=== PATIENT | male | born 1945 | race Caucasian/White ===

== ENCOUNTER 2016-03-02 15:08 | Inpatient (IN) | payer MEDICARE, BC ==
[~2016-03-02] VITALS: Ht 190.5 cm; Wt 101.4 kg
[2016-03-03] MEDS ORDERED: SIMV5TAB3 PO (12:34)
[2016-03-03] MEDS ORDERED: METO100T PO (12:34)
[2016-03-03] MEDS ORDERED: ALLO300T2 PO (12:34)
[2016-03-03] MEDS ORDERED: DILT90TA PO (12:34)
[2016-03-03] MEDS ORDERED: TAMS0.4C4 PO (12:34)
[2016-03-03] MEDS ORDERED: SYMB160A INH (12:34)
[2016-03-03] MEDS ORDERED: DIGO0.25 PO (12:34)
[2016-03-03] MEDS ORDERED: APIX5TAB PO (12:34)
[2016-03-03] MEDS ORDERED: MELO-1 PO (12:34)
[2016-03-03] MEDS ORDERED: SPIRCAP INH (12:34)
[2016-03-03] MEDS ORDERED: OMEP20TA PO (12:34)
[2016-03-03] MEDS ORDERED: ORPH100T PO (12:34)
[2016-03-31] MEDS ORDERED: ceFAZolin 2 GM PREMIX 50 ML IV SCH (07:15)
[2016-03-31] MEDS ORDERED: EXPAREL PERI-ARTICULAR INJECTION (TOTAL VOL. 60 ML) P-ARTICULR SCH ×2 (07:15)
[2016-03-31] MEDS ORDERED: VANCOMYCIN 1000 MG/NS 250 ML (for <70 kg) IV SCH ×2 (07:15)
[2016-03-31] MEDS ORDERED: CHOL5000 PO (07:24)
[2016-03-31] MEDS ORDERED: INSULIN HUMAN REGULAR 1,000 UNITS/10 ML VIAL SQ PRN (07:30)
[2016-03-31] MEDS ORDERED: LACTATED RINGER'S 1000 ML IV SCH (07:30)
[2016-03-31] MEDS ORDERED: METOPROLOL TARTRATE 25 MG TAB PO PRN (07:30)
[2016-03-31] MEDS ORDERED: SODIUM CHLORID 0.9% 500 ML IV SCH (07:30)
[2016-03-31 07:35] VITALS: BP 118/74; PULSE 68; RESP 18; TEMP 97.5; O2SAT 92
[2016-03-31 07:42] LABS: BLOOD, URINE NEG (NEG); COMMENT (UR) CULT NOT INDICATED; CULTURE IF INDICATED CULT NOT INDICATED; GLUCOSE,URINE NEG (NEG); KETONE, URINE NEG (NEG); NITRITE,URINE NEG (NEG); SQUAMOUS EPITHELIAL CELL URINE 1 /hpf (0-5); URINE COLOR YELLOW (YELLW/STRAW)
[2016-03-31] MEDS ORDERED: SODIUM CHLORIDE 0.9% IV SCH (08:00)
[2016-03-31] MEDS ORDERED: TRANEXAMIC ACID IV SCH (08:00)
[2016-03-31] MEDS ORDERED: GENTAMICIN SULFATE 80 MG/2 ML VIAL ONE (08:17)
[2016-03-31] MEDS ORDERED: VANCOMYCIN HCL 1000 MG VIAL ONE (08:17)
[2016-03-31] MEDS ORDERED: MIDAZOLAM HCL 2 MG/2 ML VIAL ONE (08:26)
[2016-03-31] MEDS ORDERED: FAMOTIDINE 20 MG/2 ML VIAL ONE (08:26)
[2016-03-31] MEDS ORDERED: XARE10TA PO (08:35)
[2016-03-31] MEDS ORDERED: HYDR-3366 PO (08:35)
[2016-03-31] MEDS ORDERED: BUPIVACAINE/EPINEPHRINE 0.25% PF 30 ML VIAL ONE (08:35)
[2016-03-31] MEDS ORDERED: WALKER/ADULT/FO1 MIS (08:35)
[2016-03-31] MEDS ORDERED: ceFAZolin INJ 1,000 MG VIAL IV ONE (09:03)
[2016-03-31] MEDS: LACTATED RINGER'S 1000 ML INJ 1,000 ML IV SCH (11:30)
--- NOTE | 2016-03-31 11:44 | HHI.PR ---
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 My P.A. presence was necessary throughout this case for the manipulation and positioning of the surgical extremity. My P.A. was assisting me throughout the duration of this procedure. The skill set of a physician orthopaedic physician assistant was medically necessary to complete this procedure. During the surgical case the surgical assist was working at the back table and the physician orthopaedic physician assistant was directly assisting me. Procedure: Removal of deep hardware, open reduction internal fixation of right tibia nonunion, iliac crest bone grafting, placement of stem cell graft Estimated blood loss: 300 mL Anesthesia: General Drains: None Patient to: PACU Patient Condition: Good Jose D De La Torre MD Mar 31, 2016 11:44
[2016-03-31] MEDS ORDERED: MORPHINE SULFATE 4 MG/ML INJ IV PUSH PRN (11:45)
[2016-03-31] MEDS ORDERED: MISCELLANEOUS NURSING INFORMATION XX PRN (11:45)
[2016-03-31] MEDS ORDERED: SODIUM CHLORIDE 0.9% FLUSH 5 ML FLUSH IVF PRN (11:45)
[2016-03-31] MEDS ORDERED: NALOXONE HCL 0.4 MG/ML AMP IV PRN (11:45)
[2016-03-31] MEDS ORDERED: MISCELLANEOUS PHARMACY INFORMATION XX ONE (11:45)
[2016-03-31] MEDS ORDERED: ACETAMINOPHEN/HYDROcodone 325 MG/10 MG TAB PO PRN (11:45)
[2016-03-31] MEDS ORDERED: diphenhydrAMINE HCL 25 MG CAP PO PRN (11:45)
[2016-03-31] MEDS ORDERED: MORPHINE SULFATE 30 MG/30 ML PCA IV SCH (11:45)
[2016-03-31] MEDS ORDERED: Post-op Orders (for Pharmacy) MISC XX ONE (11:45)
[2016-03-31] MEDS ORDERED: ONDANSETRON HCL 4 MG/2 ML VIAL IVP PRN (11:45)
[2016-03-31] MEDS ORDERED: ePHEDrine/NS 25 MG/5 ML SYR IV ONE (12:00)
[2016-03-31] MEDS ORDERED: ONDANSETRON HCL 4 MG/2 ML VIAL IV PUSH ONE (12:00)
[2016-03-31] MEDS ORDERED: LACTATED RINGER'S 1000 ML INJ 1,000 ML IV ONE (12:00)
[2016-03-31] MEDS ORDERED: PROPOFOL 200 MG/20 ML AMP IV ONE (12:00)
[2016-03-31] MEDS ORDERED: fentaNYL CITRATE 250 MCG/5 ML AMP ONE (12:47)
[2016-03-31] MEDS ORDERED: MORPHINE SULFATE 4 MG/ML INJ ONE (12:47)
[2016-03-31] MEDS ORDERED: *morphine SULFATE 8 MG/ML PERIprocedure ONLY ONE (12:48)
--- NOTE | 2016-03-31 12:57 | MP ---
cc: JOSE D PARSONS DATE OF SURGERY: 03/31/2016 PREOPERATIVE DIAGNOSIS Right proximal tibia nonunion. POSTOPERATIVE DIAGNOSIS Right proximal tibia nonunion. SURGEON Jose D Parsons MD ASSISTANTS KYLIE Conroy PA-C The surgical procedure was assisted by my physician assistants. My PA-C's presence was necessary throughout this case for the manipulation and positioning of the surgical extremity. My PA-C's were assisting me throughout the duration of this procedure. The skill set of a physician nursing home assistant was medically necessary to complete this procedure. During the surgical case the surgical services director was working at the back table and the physician assistants were directly assisting me. PROCEDURE 1. Removal of deep hardware. 2. Open treatment with open reduction internal fixation of right tibia fracture nonunion. 3. Iliac crest bone grafting. 4. Placement of stem cell graft. ESTIMATED BLOOD LOSS 300 cc. ANESTHESIA General. PLAN OF ACTIVITY Non-weightbearing. DETAILS OF PROCEDURE Jaya is a 70-year-old male who is well-known to me from previous comminuted tibial fractures. Informed consent was obtained. The operative site was marked. He was brought to the OR and placed on the OR table. He was given IV sedation and GETA. He received IV antibiotics. Time-out procedure was performed. The procedure began with removal of deep hardware. Multiple incisions were made around the proximal knee. Each of the proximal screws was identified under fluoroscopy. The screws were now removed using a screwdriver. At this point a 3-cm incision was made over the anterior knee. A medial arthrotomy was created. The proximal end of the nail was identified. The extraction bolt was screwed into the nail. At this point the distal interlocking screws were now removed under fluoroscopy. The nail was now back-slapped and removed. Next, attention was turned to open treatment of the nonunion. A TPS sade was used to debride the nonunion site. There was a large amount of fibrous tissue present. All fibrous tissue was debrided. In intramedullary canal was opened proximally and distally. At this point the fracture was mobilized. Next attention was turned to reduction. Reduction of the nonunion was difficult. A fracture tenaculum was used to aid in reduction of the fracture. An eight-holed Synthes 3.5 plate was selected. The plate was provisionally placed over the anterior border of the tibia. The plate was placed in position to help reduce and compress the fracture. Multiple 3.5 cortical screws were used to compress plate to bone. Additional lag screws were placed through the plate. Excellent compression was obtained across the nonunion site. Next, a 3.5 Synthes proximal tibial plate was placed along the lateral border of the tibia. The plate was provisionally held to bone with K-wires. Multiple 3.5 cortical screws were used to compress plate to bone. Additional locking screws were placed proximally. Multiple screws were placed in the shaft. Final fluoroscopy revealed a well-aligned fracture with well-placed hardware. The wound was thoroughly irrigated. Next, attention was turned to iliac crest bone grafting. A 3-cm incision was made over the iliac crest, the subcutaneous tissue dissected with Bovie. The fascia was elevated sharply. A window was made in the cortex. Curettes were used to obtain bone graft from the iliac crest. At this point a medium stem cell allograft was opened. The stem cells were mixed with 3 cc of blood. The stem cells were now mixed with the iliac crest bone graft. At this point the bone graft was packed into the defect of the nonunion site. Final fluoroscopy revealed excellent reduction of the fracture with well-placed hardware. Attention was now turned to closure. The fascia was closed with #1 Vicryl, the subcutaneous tissue was closed with 3-0 Vicryl and the skin was closed with margareth. Sterile dressings were applied. The patient was transferred to Recovery in stable condition. MD MANI Rodriguez/KAIDEN /11:47 AM /1:15 PM
--- NOTE | 2016-03-31 13:22 | RADRPT ---
EXAM DATE/TIME: 03/31/2016 11:19 [facility] COMPARISON: TIBIA/FIBULA RIGHT (AP/LAT), October 14, 2015, 11:22. INDICATIONS: Right tibia hardware removal, ORIF right tibia, non-union fracture. MEDICAL HISTORY: None. SURGICAL HISTORY: ORIF right tibia IM nail. ENCOUNTER: Subsequent ACUITY: 4 - 6 months PAIN SCORE: Non-responsive. LOCATION: Right tibia. FINDINGS: Hardware is noted within the right tibia status post ORIF. The hardware appears to be in good positi on. CONCLUSION: 1. Hardware within the right proximal and mid tibia in good position status post ORIF. Sanjay Shirley MD on March 31, 2016 at 13:09 Board Certified Radiologist. This report was verified electronically.
[2016-03-31] MEDS: PCA - TOTAL MG MORPHINE DELIVERED PER SHIFT SCH ×2 (14:00→21:52)
[2016-03-31] MEDS: KETOROLAC TROMETHAMINE 30 MG/ML (IVP) VIAL IVP SCH ×2 (16:00→21:52)
[2016-03-31 16:30] VITALS: BP 133/87; PULSE 56; RESP 16; TEMP 95.4; O2SAT 94
[2016-03-31] MEDS: CALCIUM/VITAMIN D 250 MG/125 U TAB PO SCH ×2 (17:27→17:41)
[2016-03-31] MEDS: ceFAZolin 2 GM PREMIX 50 ML IV SCH (17:27)
[2016-03-31] MEDS: DOCUSATE SODIUM 50 MG/SENNA 8.6 MG TAB PO SCH (19:58)
[2016-03-31] MEDS: METOPROLOL TARTRATE 100 MG TAB PO SCH (19:58)
[2016-03-31] MEDS: TAMSULOSIN HCL 0.4 MG CAP PO SCH (19:58)
[2016-03-31] MEDS: SODIUM CHLORIDE 0.9% FLUSH 5 ML FLUSH IVF SCH (19:59)
[2016-03-31] MEDS: VANCOMYCIN INJ 1,000 MG in SODIUM CHLOR 0.9% 250 ML INJ 250 ML IV SCH (19:59)
[2016-03-31 20:35] VITALS: BP 136/74; PULSE 59; RESP 19; TEMP 96.5; O2SAT 95
[2016-03-31] MEDS: BUDESONIDE-FORMOTEROL 160/4.5 MCG INHALER INH SCH (21:51)
[2016-03-31] MEDS: ORPHENADRINE CITRATE 100 MG SUSTAINED RELEASE TAB PO SCH (21:51)
[2016-04-01] VITALS (8 sets, daily range): BP systolic 106–129; BP diastolic 56–62; PULSE 53–74; RESP 16–20; TEMP 95.4–97.9; O2SAT 92–97
[2016-04-01] MEDS: LACTATED RINGER'S 1000 ML INJ 1,000 ML IV SCH ×2 (01:06→12:37)
[2016-04-01] MEDS: ceFAZolin 2 GM PREMIX 50 ML IV SCH ×3 (01:06→17:24)
[2016-04-01] MEDS: KETOROLAC TROMETHAMINE 30 MG/ML (IVP) VIAL IVP SCH ×2 (05:03→13:04)
[2016-04-01] MEDS: PCA - TOTAL MG MORPHINE DELIVERED PER SHIFT SCH ×3 (05:07→20:46)
[2016-04-01] MEDS: CHLORHEXIDINE GLUCONATE 4% SOLN 120 ML BTL TOP SCH (06:20)
[2016-04-01 06:40] LABS: HEMATOCRIT 34.1 % (39.0-51.0)
[2016-04-01 06:41] LABS: REVIEW FLAG FINAL
--- NOTE | 2016-04-01 07:23 | PD.ORT.PN ---
Subjective Subjective Remarks Pain controlled, no new complaints Objective Vitals Vital Signs Date Time Temp Pulse Resp B/P Pulse Ox O2 Delivery O2 Flow Rate FiO2 04/01/16 05:55 20 04/01/16 05:07 16 04/01/16 04:24 95.4 53 20 107/62 95 04/01/16 00:25 96.8 54 20 129/62 97 03/31/16 21:52 16 03/31/16 21:07 Nasal Cannula 2.00 03/31/16 20:35 96.5 59 19 136/74 95 03/31/16 20:00 Nasal Cannula 2.00 03/31/16 19:30 16 03/31/16 16:30 95.4 56 16 133/87 94 03/31/16 16:18 Nasal Cannula 2.00 03/31/16 16:15 97.4 60 17 131/84 94 Nasal Cannula 3 03/31/16 15:15 59 17 146/82 95 Nasal Cannula 2 03/31/16 14:45 61 17 139/89 95 Nasal Cannula 3 03/31/16 14:15 57 17 133/72 95 Nasal Cannula 3 03/31/16 14:00 61 17 139/78 94 Nasal Cannula 3 03/31/16 14:00 16 03/31/16 13:45 62 17 148/77 96 Nasal Cannula 3 03/31/16 13:35 17 03/31/16 13:30 59 17 141/79 96 Nasal Cannula 3 03/31/16 13:15 70 15 134/82 97 Nasal Cannula 3 03/31/16 13:00 59 15 144/85 97 Nasal Cannula 3 03/31/16 12:45 68 15 136/82 93 Nasal Cannula 3 03/31/16 12:33 97.8 67 15 132/75 96 Nasal Cannula 4 03/31/16 07:35 97.5 68 18 118/74 92 I/O 03/31/16 03/31/16 03/31/16 04/01/16 04/01/16 04/01/16 07:00 15:00 23:00 07:00 15:00 23:00 Intake Total 2000 ml 1240 ml 1565 ml Output Total 750 ml 445 ml 175 ml Balance 1250 ml 795 ml 1390 ml Intake Oral 240 ml 120 ml IV Total 500 ml 1000 ml 1445 ml Other 1500 ml Output Urine Total 450 ml 445 ml 175 ml Estimated Blood Loss 300 ml # Bowel Movements 0 0 Result Diagram: 04/01/16 0601 Imaging Last 72 hours Impressions Tibia/Fibula X-Ray 03/31/16 0000 Signed Impressions: Service Date/Time: March 11:19 - CONCLUSION: 1. Hardware within the right proximal and mid tibia in good position status post ORIF. Sanjay Shirley MD Objective Remarks Right lower extremity: Clean dry dressings intact. Compartments soft. Distally intact sensation in all his toes. Is able to dorsiflex and plantarflex his foot. Has chronic nonunion of tibiotalar fusion. Assessment & Plan Assessment and Plan Nonunion right tibia shaftremoval of IM nail, open reduction internal fixation of tibia shaft and iliac crest bone graft with stem cells POD 1, chronic nonunion of tibiotalar fusion9 not(not addressed this visit) Nonweightbearing right lower extremity Daily dressing changes beginning POD 2 Elevation and ice Lovenox Incentive spirometry SCD on left and pedi pulse on right Plan on discharge to rehabilitation on Monday when bed available Follow-up with Dr. De La Torre or [facility] in 2 weeks JANKI DE LA O PA-C Apr 01, 2016 07:23
[2016-04-01] MEDS: VANCOMYCIN INJ 1,000 MG in SODIUM CHLOR 0.9% 250 ML INJ 250 ML IV SCH ×2 (08:30→20:39)
[2016-04-01] MEDS: BUDESONIDE-FORMOTEROL 160/4.5 MCG INHALER INH SCH ×2 (08:30→20:22)
[2016-04-01] MEDS: SODIUM CHLORIDE 0.9% FLUSH 5 ML FLUSH IVF SCH ×2 (08:31→20:24)
[2016-04-01] MEDS: DILTIAZEM-CD 180 MG CAP ER PO SCH (08:31)
[2016-04-01] MEDS: CALCIUM/VITAMIN D 250 MG/125 U TAB PO SCH ×3 (08:32→17:24)
[2016-04-01] MEDS: DIGOXIN 0.25 MG TAB PO SCH (08:32)
[2016-04-01] MEDS: METOPROLOL TARTRATE 100 MG TAB PO SCH ×2 (08:32→20:25)
[2016-04-01] MEDS: ALLOPURINOL 300 MG TAB PO SCH (08:32)
[2016-04-01] MEDS: DOCUSATE SODIUM 50 MG/SENNA 8.6 MG TAB PO SCH ×2 (08:32→20:23)
[2016-04-01] MEDS: CHOLECALCIFEROL (VIT D3) 5000 UNIT CAP PO SCH (08:33)
[2016-04-01] MEDS: PANTOPRAZOLE SOD 20 MG DELAYED RELEASE TAB PO SCH (08:33)
[2016-04-01] MEDS: ORPHENADRINE CITRATE 100 MG SUSTAINED RELEASE TAB PO SCH ×2 (09:51→20:23)
[2016-04-01] MEDS: TIOTROPIUM BROMIDE 18 MCG INH INH SCH (09:51)
[2016-04-01] MEDS: ENOXAPARIN SODIUM 30 MG/0.3 ML SYRINGE SQ SCH (10:58)
[2016-04-01] MEDS: ACETAMINOPHEN/HYDROcodone 325 MG/10 MG TAB PO PRN (17:36)
[2016-04-01] MEDS: TAMSULOSIN HCL 0.4 MG CAP PO SCH (20:24)
[2016-04-01] MEDS: MAGNESIUM HYDROXIDE SUSP 30 ML CUP PO PRN (22:35)
[2016-04-02] VITALS (7 sets, daily range): BP systolic 113–127; BP diastolic 58–71; PULSE 50–67; RESP 18–23; TEMP 95.5–96.3; O2SAT 95–99
[2016-04-02] MEDS: ceFAZolin 2 GM PREMIX 50 ML IV SCH ×2 (03:31→09:16)
[2016-04-02] MEDS: PCA - TOTAL MG MORPHINE DELIVERED PER SHIFT SCH (06:00)
[2016-04-02] MEDS: CHLORHEXIDINE GLUCONATE 4% SOLN 120 ML BTL TOP SCH (07:15)
--- NOTE | 2016-04-02 08:19 | PD.ORT.PN ---
Subjective Post Op Day #: 2 Subjective Remarks Pt resting comfortably in chair, awake and alert, answering questions appropriately. He admits to well controlled right lower leg pain. He states he didn't sleep very well last night because he didn't have his CPAP machine. Objective Vitals Vital Signs Date Time Temp Pulse Resp B/P Pulse Ox O2 Delivery O2 Flow Rate FiO2 04/02/16 00:15 96.1 67 19 117/61 96 04/01/16 20:15 96.3 63 18 110/57 92 04/01/16 16:22 97 Nasal Cannula 2.00 04/01/16 16:00 97.9 74 16 110/57 97 04/01/16 13:08 18 04/01/16 12:16 97.4 63 16 117/56 94 04/01/16 10:00 96 Nasal Cannula 2.00 04/01/16 08:18 97.7 53 16 106/59 96 I/O 04/01/16 04/01/16 04/01/16 04/02/16 04/02/16 04/02/16 07:00 15:00 23:00 07:00 15:00 23:00 Intake Total 1565 ml 822 ml 480 ml 240 ml Output Total 175 ml Balance 1390 ml 822 ml 480 ml 240 ml Intake Oral 120 ml 480 ml 240 ml IV Total 1445 ml 822 ml Output Urine Total 175 ml # Voids 1 1 # Bowel Movements 0 0 0 Result Diagram: 04/01/16 0601 Imaging Last 72 hours Impressions Tibia/Fibula X-Ray 03/31/16 0000 Signed Impressions: Service Date/Time: March 11:19 - CONCLUSION: 1. Hardware within the right proximal and mid tibia in good position status post ORIF. Sanjay Shirley MD Procedures Nonunion right tibia shaftremoval of IM nail, open reduction internal fixation of tibia shaft and iliac crest bone graft with stem cells Objective Remarks Right lower extremity: Clean and dry, dressings and splint intact. Compartments soft. Distally intact sensation in all his toes. Is able to wiggles toes freely. Good cap refill. 2+ pedal pulses. Has chronic nonunion of tibiotalar fusion. Assessment & Plan Ortho Post Op Day #: 2 Problem List: (1) Leg fracture, right (2) DM (diabetes mellitus screen) (3) HTN (hypertension) (4) COPD (chronic obstructive pulmonary disease) (5) CAD (coronary artery disease) Assessment and Plan Nonunion right tibia shaftremoval of IM nail, open reduction internal fixation of tibia shaft and iliac crest bone graft with stem cells POD 2, chronic nonunion of tibiotalar fusion (not not addressed this visit) Nonweightbearing right lower extremity Daily dressing changes beginning today Elevation and ice Lovenox for DVT prophylaxis Incentive spirometry SCD on left and pedi pulse on right Plan on discharge to rehabilitation on Monday when bed available Call has been placed to resp. physician for CPAP settings. Follow-up with Dr. De La Torre or [place] in 2 weeks Mari Pérez Apr 02, 2016 08:19
[2016-04-02] MEDS: DOCUSATE SODIUM 50 MG/SENNA 8.6 MG TAB PO SCH ×2 (09:16→20:30)
[2016-04-02] MEDS: METOPROLOL TARTRATE 100 MG TAB PO SCH ×2 (09:16→20:31)
[2016-04-02] MEDS: CALCIUM/VITAMIN D 250 MG/125 U TAB PO SCH ×3 (09:16→17:57)
[2016-04-02] MEDS: CHOLECALCIFEROL (VIT D3) 5000 UNIT CAP PO SCH (09:16)
[2016-04-02] MEDS: DILTIAZEM-CD 180 MG CAP ER PO SCH (09:16)
[2016-04-02] MEDS: ORPHENADRINE CITRATE 100 MG SUSTAINED RELEASE TAB PO SCH ×2 (09:16→20:30)
[2016-04-02] MEDS: PANTOPRAZOLE SOD 20 MG DELAYED RELEASE TAB PO SCH (09:16)
[2016-04-02] MEDS: DIGOXIN 0.25 MG TAB PO SCH (09:16)
[2016-04-02] MEDS: ALLOPURINOL 300 MG TAB PO SCH (09:16)
[2016-04-02] MEDS: ACETAMINOPHEN/HYDROcodone 325 MG/10 MG TAB PO PRN ×4 (09:17→20:31)
[2016-04-02] MEDS: TIOTROPIUM BROMIDE 18 MCG INH INH SCH (09:17)
[2016-04-02] MEDS: BUDESONIDE-FORMOTEROL 160/4.5 MCG INHALER INH SCH ×2 (09:18→20:32)
[2016-04-02] MEDS: LACTATED RINGER'S 1000 ML INJ 1,000 ML IV SCH ×2 (09:26→13:38)
[2016-04-02] MEDS: SODIUM CHLORIDE 0.9% FLUSH 5 ML FLUSH IVF SCH ×2 (09:27→20:32)
[2016-04-02] MEDS: ENOXAPARIN SODIUM 30 MG/0.3 ML SYRINGE SQ SCH (11:00)
[2016-04-02] MEDS ORDERED: MAGNESIUM CITRATE SOLN 300 ML BTL PO PRN (15:00)
[2016-04-02] MEDS: MAGNESIUM HYDROXIDE SUSP 30 ML CUP PO PRN (20:30)
[2016-04-02] MEDS: TAMSULOSIN HCL 0.4 MG CAP PO SCH (20:31)
[2016-04-03 00:35] VITALS: BP 134/64; PULSE 89; RESP 21; TEMP 95.6; O2SAT 95
[2016-04-03] MEDS: ACETAMINOPHEN/HYDROcodone 325 MG/10 MG TAB PO PRN ×2 (00:37→05:59)
[2016-04-03] MEDS: LACTATED RINGER'S 1000 ML INJ 1,000 ML IV SCH ×3 (02:08→20:17)
--- NOTE | 2016-04-03 07:13 | PD.ORT.PN ---
Subjective Post Op Day #: 3 Subjective Remarks Pt resting comfortably in bed, awake and alert, answering questions appropriately. He admits to well controlled right lower leg pain. Pt received CPAP machine from respiratory and admits he 'did not use it last night'. Objective Vitals Vital Signs Date Time Temp Pulse Resp B/P Pulse Ox O2 Delivery O2 Flow Rate FiO2 04/03/16 00:35 95.6 89 21 134/64 95 04/02/16 21:44 95 Nasal Cannula 3.00 04/02/16 20:20 96.3 67 23 127/71 95 04/02/16 18:53 Nasal Cannula 3.00 Bi-Pap 04/02/16 15:48 96.2 50 18 113/65 95 04/02/16 12:00 99 Room Air 04/02/16 12:00 95.5 64 18 123/58 99 04/02/16 09:10 96 Nasal Cannula 3.00 04/02/16 08:00 99 Nasal Cannula 2.00 04/02/16 07:59 95.8 64 18 117/62 99 I/O 04/02/16 04/02/16 04/02/16 04/03/16 04/03/16 04/03/16 07:00 15:00 23:00 07:00 15:00 23:00 Intake Total 240 ml 960 ml 480 ml 240 ml Balance 240 ml 960 ml 480 ml 240 ml Intake Oral 240 ml 960 ml 480 ml 240 ml # Voids 1 3 4 2 # Bowel Movements 0 0 0 0 Result Diagram: 04/01/16 0601 Imaging Last 72 hours Impressions Tibia/Fibula X-Ray 03/31/16 0000 Signed Impressions: Service Date/Time: March 11:19 - CONCLUSION: 1. Hardware within the right proximal and mid tibia in good position status post ORIF. Sanjay Shirley MD Procedures Nonunion right tibia shaftremoval of IM nail, open reduction internal fixation of tibia shaft and iliac crest bone graft with stem cells Objective Remarks Right lower extremity: Clean and dry, dressings and splint intact. Compartments soft. Distally intact sensation in all his toes. Is able to wiggles toes freely. Good cap refill. 2+ pedal pulses. Has chronic nonunion of tibiotalar fusion. Assessment & Plan Ortho Post Op Day #: 3 Problem List: (1) Leg fracture, right (2) DM (diabetes mellitus screen) (3) HTN (hypertension) (4) COPD (chronic obstructive pulmonary disease) (5) CAD (coronary artery disease) Assessment and Plan Nonunion right tibia shaftremoval of IM nail, open reduction internal fixation of tibia shaft and iliac crest bone graft with stem cells POD #3, chronic nonunion of tibiotalar fusion (not not addressed this visit) Nonweightbearing right lower extremity Daily dressing changes Elevation and ice Lovenox for DVT prophylaxis Incentive spirometry SCD on left and pedi pulse on right Plan on discharge to rehabilitation on today Follow-up with Dr. De La Torre or [place] in 2 weeks Mari Pérez Apr 03, 2016 07:13
[2016-04-03 08:00] VITALS: BP 125/66; PULSE 61; RESP 15; TEMP 95.5; O2SAT 96
[2016-04-03] MEDS: BUDESONIDE-FORMOTEROL 160/4.5 MCG INHALER INH SCH ×2 (09:33→20:17)
[2016-04-03] MEDS: DIGOXIN 0.25 MG TAB PO SCH (09:34)
[2016-04-03] MEDS: ORPHENADRINE CITRATE 100 MG SUSTAINED RELEASE TAB PO SCH ×2 (09:34→20:16)
[2016-04-03] MEDS: PANTOPRAZOLE SOD 20 MG DELAYED RELEASE TAB PO SCH (09:34)
[2016-04-03] MEDS: DILTIAZEM-CD 180 MG CAP ER PO SCH (09:34)
[2016-04-03] MEDS: METOPROLOL TARTRATE 100 MG TAB PO SCH ×2 (09:34→20:16)
[2016-04-03] MEDS: TIOTROPIUM BROMIDE 18 MCG INH INH SCH (09:34)
[2016-04-03] MEDS: DOCUSATE SODIUM 50 MG/SENNA 8.6 MG TAB PO SCH ×2 (09:35→20:16)
[2016-04-03] MEDS: CALCIUM/VITAMIN D 250 MG/125 U TAB PO SCH ×3 (09:35→18:00)
[2016-04-03] MEDS: ALLOPURINOL 300 MG TAB PO SCH (09:35)
[2016-04-03] MEDS: CHOLECALCIFEROL (VIT D3) 5000 UNIT CAP PO SCH (09:35)
[2016-04-03] MEDS: SODIUM CHLORIDE 0.9% FLUSH 5 ML FLUSH IVF SCH ×2 (09:38→20:16)
[2016-04-03] MEDS: MAGNESIUM HYDROXIDE SUSP 30 ML CUP PO PRN (11:30)
[2016-04-03] MEDS: ENOXAPARIN SODIUM 30 MG/0.3 ML SYRINGE SQ SCH (11:30)
[2016-04-03 12:00] VITALS: BP 115/70; PULSE 51; RESP 15; TEMP 95.6; O2SAT 93
[2016-04-03 12:55] VITALS: O2SAT 94
[2016-04-03] MEDS: TAMSULOSIN HCL 0.4 MG CAP PO SCH (20:16)
[2016-04-03 20:18] VITALS: BP 127/61
--- NOTE | 2016-04-28 08:49 | HHI.DS ---
Discharge Summary Admission Date Mar 31, 2016 at 06:46 Discharge Date: Apr 03, 2016 Admitting Diagnosis Nonunion Right Tibial Shaft Fx Diagnosis: (1) Leg fracture, right Diagnosis: Principal (2) DM (diabetes mellitus screen) Diagnosis: Secondary (3) HTN (hypertension) Diagnosis: Secondary (4) COPD (chronic obstructive pulmonary disease) Diagnosis: Secondary (5) CAD (coronary artery disease) Diagnosis: Secondary Procedures Nonunion right tibia shaftremoval of IM nail, open reduction internal fixation of tibia shaft and iliac crest bone graft with stem cells PE at Discharge Right lower extremity: Clean and dry, dressings and splint intact. Compartments soft. Distally intact sensation in all his toes. Is able to wiggles toes freely. Good cap refill. 2+ pedal pulses. Has chronic nonunion of tibiotalar fusion. Hospital Course Admitted from outpatient setting for removal of hardware and ORIF of tibial shaft nonunion of right leg. Patient tolerated the procedure well and was admitted to . Patient's pain was controlled and he was out of bed on POD 1. He was hemodynamically stable, pain controlled, ambulating with walker and wheelchair, and fit for discharge to rehab on 04/03/16. He will be discharged and follow up with Dr Parsons or [place] in 2 weeks. He Will remain non weight bearing on right leg and have dressing changes performed daily. Pt Condition on Discharge: Good Discharge Disposition: Discharge to SNF Discharge Instructions Diet Instructions: As Tolerated, No Restrictions Activities You Can Perform: Non Weight Bearing Follow up Referrals: Orthopedics - 04/14/16 @ [facility] with Jose D Parsons MD New Medications: Hydrocodone-Acetaminophen ([place]) 10-325 Mg Tab 1 TAB PO Q4H PRN PAIN #60 Ref 0 TAB Rivaroxaban (Xarelto) 10 Mg Tab 10 MG PO DAILY Blood Clot Prevention #14 Ref 0 TAB Walker/Adult/Folding (Walker/Adult/Folding) 1 Mis Mis 1 EA .ROUTE DIRECTED #1 Ref 0 EA Continued Medications: Allopurinol (Allopurinol) 300 Mg Tab 300 MG PO DAILY Gout #30 Ref 0 TAB Apixaban (Eliquis) 5 Mg Tab 5 MG PO BID Blood Clot Prevention #60 Ref 0 TAB Budesonide-Formoterol Inh (Symbicort Inh) 160-4.5 Mcg/Act Aero 2 PUFF INH Q12HR #1 Ref 0 INHALER Cholecalciferol (Vitamin D3) 5,000 Unit Cap 5000 UNITS PO WEEKLY Nutritional Supplement #1 Ref 0 BOTTLE Digoxin (Digoxin) 0.25 Mg Tab 0.25 MG PO DAILY Regulate Heart Beat #30 Ref 0 TAB Diltiazem (Diltiazem) 90 Mg Tab 180 MG PO DAILY Angina #120 Ref 0 TAB Meloxicam (Meloxicam) 15 Mg Tab 15 MG PO DAILY Arthritis Pain #30 Ref 0 TAB Metoprolol Tartrate (Metoprolol Tartrate) 100 Mg Tab 100 MG PO BID #60 Ref 0 TAB Omeprazole (Omeprazole) 20 Mg Tab 20 MG PO DAILY #30 Ref 0 TAB Orphenadrine ER 12 HR (Orphenadrine ER 12 HR) 100 Mg Tab 100 MG PO Q12HR Muscle Spasm #60 Ref 0 TAB Simvastatin (Simvastatin) 5 Mg Tab Unknown Dose PO HS Cholesterol Management #30 Ref 0 TAB Tamsulosin (Tamsulosin) 0.4 Mg Cap 0.8 MG PO HS Manage Prostate Problems #60 Ref 0 CAP Tiotropium Inh (Spiriva Handihaler) 18 Mcg Cap 18 MCG INH DAILY 1 capsule = 18 mcg COPD #30 Ref 0 CAP Trevor Douglass Apr 28, 2016 08:49
== END 2016-04-03 21:32 | DRG 494 ==
LOC: HSDI 03-31 06:46 → N06B 03-31 16:22
PROVIDERS: ADMIT Orthopaedic Surgery Orthopaedic Trauma; ATTEND Orthopaedic Surgery Orthopaedic Trauma
PROC: 0QPG04Z Removal of Internal Fixation Device from Right Tibia, Open Approach (ICD-10-PCS; 2016-03-31)
PROC: 0QUG07Z Supplement Right Tibia with Autologous Tissue Substitute, Open Approach (ICD-10-PCS; 2016-03-31)
PROC: 0QB20ZZ Excision of Right Pelvic Bone, Open Approach (ICD-10-PCS; 2016-03-31)
PROC: 0QSG04Z Reposition Right Tibia with Internal Fixation Device, Open Approach (ICD-10-PCS; principal; 2016-03-31 08:41)
DX: S82.251K Displaced comminuted fracture of shaft of right tibia, subsequent encounter for closed fracture with nonunion (principal); J44.9 Chronic obstructive pulmonary disease, unspecified; I48.91 Unspecified atrial fibrillation; I10 Essential (primary) hypertension; N40.0 Benign prostatic hyperplasia without lower urinary tract symptoms; I25.10 Atherosclerotic heart disease of native coronary artery without angina pectoris; E78.5 Hyperlipidemia, unspecified; K21.9 Gastro-esophageal reflux disease without esophagitis; M10.9 Gout, unspecified; Z79.01 Long term (current) use of anticoagulants; Z87.891 Personal history of nicotine dependence; Z98.84 Bariatric surgery status
CPT/HCPCS: 73590; 76000; 81001; 85014; 85018; 94002; 94150; C1713; J0690; J1580; J1650; J1885; J2250; J2270; J2405; J3010; J3370; J7050; J7120

== ENCOUNTER → 2016-03-03 | Outpatient (CLI) | payer MEDICARE, BC ==
[~2016-03-03] MED LIST: ALLO300T2 PO; APIX5TAB PO; BUDE.5I NEB; CHOL5000 PO; D-10TAB PO; DIGO0.25 PO; DILT180C56 PO; DILT90TA PO; DUONI NEB; FURO20 PO; HYDR-3366 PO; MELO-1 PO; METO100T PO; METO50TA PO; MOBI15TA PO; NORC10TA2 PO; OMEP20TA PO; OMEP20TA39 PO; ORPH100T PO; PERI8.6T PO; PRED10PA PO; SIMV5TAB3 PO; SPIRCAP INH; SYMB160A INH; TAMS0.4C4 PO; THIA100T PO; WALKER STANDARD; WALKER/ADULT/FO1 MIS; XARE10TA PO
[2016-03-03 12:07] LABS: AUTOMATED NEUTROPHIL # 6.2 TH/MM3 (1.8-7.7); BASOPHIL # 0.1 TH/MM3 (0-0.2); BASOPHIL % 1.1 % (0.0-2.0); EOSINOPHIL # 0.3 TH/MM3 (0-0.4); EOSINOPHIL % 3.4 % (0.0-4.0); HEMATOCRIT 40.6 % (39.0-51.0); LYMPH % 17.2 % (9.0-44.0); LYMPHOCYTE # 1.5 TH/MM3 (1.0-4.8); MEAN CELL VOLUME 75.9 FL (80.0-100.0); MEAN CORPUSCULAR HEMOGLOBIN 24.5 PG (27.0-34.0); MEAN CORPUSCULAR HGB CONC 32.3 % (32.0-36.0); MONO % 8.2 % (0.0-8.0); NEUT % 70.1 % (16.0-70.0); PLATELET COUNT 378 TH/MM3 (150-450); RED BLOOD COUNT 5.35 MIL/MM3 (4.50-5.90); RED CELL DISTRIBUTION WIDTH 18.8 % (11.6-17.2); WHITE BLOOD COUNT 8.8 TH/MM3 (4.0-11.0)
[2016-03-03 12:11] LABS: HEMO FLAGS AUTO DIFF
[2016-03-03 12:20] LABS: APTT (PATIENT) 30.6 SEC (24.3-30.1); PROTHROMBIN TIME - PATIENT 11.4 SEC (9.8-11.6)
[2016-03-03 12:24] LABS: BLOOD, URINE NEG (NEG); COMMENT (UR) CULT NOT INDICATED; CULTURE IF INDICATED CULT NOT INDICATED; GLUCOSE,URINE NEG (NEG); KETONE, URINE NEG (NEG); NITRITE,URINE NEG (NEG); PH, URINE 5.5 (5.0-8.5); URIC ACID CRYSTALS, URINE MANY /hpf; URINE COLOR YELLOW (YELLW/STRAW)
[2016-03-03 12:32] LABS: BICARBONATE 28.7 MEQ/L (21.0-32.0); POTASSIUM 5.4 MEQ/L (3.5-5.1)
[2016-03-03 12:40] LABS: OVALOCYTES 1+ (NORMAL); PLATELET ESTIMATE SMEAR NORMAL (NORMAL); PLATELET MORPHOLOGY NORMAL (NORMAL); SCAN/DIFF AUTO DIFF CONFIRMED
--- NOTE | 2016-03-03 13:25 | RADRPT ---
EXAM DATE/TIME: 03/03/2016 12:39 [facility] COMPARISON: CT PULMONARY ANGIOGRAM, October 15, 2015, 17:16. INDICATIONS : Evaluate for pneumonia,pneumothorax, and communicable diseases. Pre-op tibia surgery MEDICAL HISTORY : Hypertension. Cardiovascular disease. SURGICAL HISTORY : Cholecystectomy. Gastric bypass. ENCOUNTER: Initial ACUITY: 1 day PAIN SCORE: 0/10 LOCATION: chest FINDINGS: PA lateral views of the lungs demonstrate hypoinflation but are otherwise clear. Heart size is normal . Pulmonary vasculature is normal. CONCLUSION: No acute disease. Stacey Salter MD on March 03, 2016 at 13:22 Board Certified Radiologist. This report was verified electronically.
--- NOTE | 2016-03-03 20:14 | EKG ---
Date Performed: 03/03/2016 Time Performed: 11:49:36 PTAGE: 70 years EKG: ATRIAL FIBRILLATION WITH CONTROL VENTRICULAR RATE ST- T ABNORMALITIES RESOLVED SINCE PRIOR TRACING BORDERLINE ECG PREVIOUS TRACING 10/14/15 @ 08.49.54 DOCTOR: Mik Guillen Interpretating Date/Time 03/03/2016 20:13:09
== END ==
LOC: CPRE 11:11
PROVIDERS: ATTEND Orthopaedic Surgery Orthopaedic Trauma
DX: Z01.810 Encounter for preprocedural cardiovascular examination (principal); Z01.811 Encounter for preprocedural respiratory examination; Z01.812 Encounter for preprocedural laboratory examination; Z01.818 Encounter for other preprocedural examination; S82.101K Unspecified fracture of upper end of right tibia, subsequent encounter for closed fracture with nonunion; M79.609 Pain in unspecified limb; S82.201D Unspecified fracture of shaft of right tibia, subsequent encounter for closed fracture with routine healing; Z13.9 Encounter for screening, unspecified; Z79.01 Long term (current) use of anticoagulants; Z96.60 Presence of unspecified orthopedic joint implant; X58.XXXA Exposure to other specified factors, initial encounter; I48.91 Unspecified atrial fibrillation
CPT/HCPCS: 36415; 71020; 80048; 81001; 85025; 85610; 85730; 93005

== ENCOUNTER → 2016-03-24 | Outpatient (CLI) | payer MEDICARE, BC ==
[~2016-03-24] MED LIST changes: -BUDE.5I NEB; -D-10TAB PO; -DILT180C56 PO; -DUONI NEB; -FURO20 PO; -METO50TA PO; -MOBI15TA PO; -NORC10TA2 PO; -OMEP20TA39 PO; -PERI8.6T PO; -PRED10PA PO; -THIA100T PO; -WALKER STANDARD
[2016-03-24 12:04] LABS: AUTOMATED NEUTROPHIL # 6.5 TH/MM3 (1.8-7.7); BASOPHIL # 0.1 TH/MM3 (0-0.2); BASOPHIL % 0.6 % (0.0-2.0); EOSINOPHIL # 0.2 TH/MM3 (0-0.4); EOSINOPHIL % 2.6 % (0.0-4.0); HEMATOCRIT 37.9 % (39.0-51.0); LYMPH % 16.9 % (9.0-44.0); LYMPHOCYTE # 1.6 TH/MM3 (1.0-4.8); MEAN CELL VOLUME 76.5 FL (80.0-100.0); MEAN CORPUSCULAR HEMOGLOBIN 24.6 PG (27.0-34.0); MEAN CORPUSCULAR HGB CONC 32.1 % (32.0-36.0); NEUT % 70.9 % (16.0-70.0); PLATELET COUNT 342 TH/MM3 (150-450); RED BLOOD COUNT 4.95 MIL/MM3 (4.50-5.90); RED CELL DISTRIBUTION WIDTH 19.9 % (11.6-17.2); WHITE BLOOD COUNT 9.2 TH/MM3 (4.0-11.0)
[2016-03-24 12:06] LABS: HEMO FLAGS AUTO DIFF
[2016-03-24 12:13] LABS: APTT (PATIENT) 29.7 SEC (24.3-30.1); PROTHROMBIN TIME - PATIENT 11.6 SEC (9.8-11.6)
[2016-03-24 12:25] LABS: BICARBONATE 32.5 MEQ/L (21.0-32.0); POTASSIUM 4.1 MEQ/L (3.5-5.1)
[2016-03-24 13:08] LABS: PLATELET ESTIMATE SMEAR NORMAL (NORMAL); PLATELET MORPHOLOGY NORMAL (NORMAL); SCAN/DIFF AUTO DIFF CONFIRMED
== END ==
LOC: CPRE 11:07
PROVIDERS: ATTEND Orthopaedic Surgery Orthopaedic Trauma
DX: Z01.812 Encounter for preprocedural laboratory examination (principal); S82.101K Unspecified fracture of upper end of right tibia, subsequent encounter for closed fracture with nonunion; M79.609 Pain in unspecified limb; Z79.01 Long term (current) use of anticoagulants
CPT/HCPCS: 36415; 80048; 85025; 85610; 85730

== ENCOUNTER 2016-11-01 06:46 | Inpatient (IN) | payer MEDICARE, BC ==
[~2016-11-01 06:46] MED LIST changes: +CALC500T8 PO; +FERR325T8 PO; -HYDR-3366 PO; +SIMV20TA PO; -XARE10TA PO
== END 2016-11-01 09:00 | disposition home or self-care (01) | DRG 561 ==
LOC: HSDI 06:46
PROVIDERS: ADMIT Orthopaedic Surgery Orthopaedic Trauma; ATTEND Orthopaedic Surgery Orthopaedic Trauma
DX: S82.201D Unspecified fracture of shaft of right tibia, subsequent encounter for closed fracture with routine healing (principal); Z53.8 Procedure and treatment not carried out for other reasons; X58.XXXD Exposure to other specified factors, subsequent encounter

== ENCOUNTER 2016-11-15 05:43 | Inpatient (IN) | payer MEDICARE, BC ==
[~2016-11-15] VITALS: Ht 190.5 cm; Wt 114.5 kg
[2016-11-15] VITALS (7 sets, daily range): BP systolic 103–144; BP diastolic 67–73; PULSE 61–80; RESP 16–18; TEMP 96–98.5; O2SAT 90–99
[2016-11-15] MEDS ORDERED: GENTAMICIN SULFATE 80 MG/2 ML VIAL ONE (06:20)
[2016-11-15] MEDS ORDERED: ceFAZolin 2 GM PREMIX 50 ML IV SCH (06:30)
[2016-11-15] MEDS ORDERED: POVIDONE IODINE 5% (ANTISEPSIS KIT) 4 APPLICATIONS EACH NARE PRN (06:30)
[2016-11-15] MEDS ORDERED: LACTATED RINGER'S 1000 ML IV PRN (06:30)
[2016-11-15] MEDS ORDERED: METOPROLOL TARTRATE 25 MG TAB PO PRN (06:30)
[2016-11-15] MEDS ORDERED: SODIUM CHLORID 0.9% 500 ML IV PRN (06:30)
[2016-11-15] MEDS ORDERED: CHLORHEXIDINE GLUCONATE 2 % 1 PACK (2 CLOTHS) TOPICAL PRN (06:30)
[2016-11-15] MEDS ORDERED: INSULIN HUMAN REGULAR 1,000 UNITS/10 ML VIAL SQ PRN (06:30)
[2016-11-15] MEDS ORDERED: FAMOTIDINE 20 MG/2 ML VIAL ONE (06:46)
[2016-11-15] MEDS ORDERED: ACETAMINOPHEN 1000 MG/100 ML 100 ML IV ONE (06:47)
[2016-11-15] MEDS ORDERED: HYDR-3583 PO (06:58)
[2016-11-15] MEDS ORDERED: SODIUM CHLOR 0.9% 250 ML INJ 250 ML ONE (07:08)
[2016-11-15] MEDS ORDERED: VANCOMYCIN HCL 1000 MG VIAL ONE (07:08)
[2016-11-15 07:44] LABS: MEAN CELL VOLUME 77.2 FL (80.0-100.0); MEAN CORPUSCULAR HEMOGLOBIN 24.3 PG (27.0-34.0); MEAN CORPUSCULAR HGB CONC 31.5 % (32.0-36.0); PLATELET COUNT 250 TH/MM3 (150-450); REVIEW FLAG FINAL; WHITE BLOOD COUNT 8.6 TH/MM3 (4.0-11.0)
[2016-11-15] MEDS ORDERED: GLYCOPYRROLATE 0.4 MG/2 ML VIAL ONE (07:58)
[2016-11-15] MEDS ORDERED: ROPIVACAINE 0.5% PF INJ 30 ML VIAL NERV BLOCK ONE (09:39)
[2016-11-15] MEDS ORDERED: ONDANSETRON HCL 4 MG/2 ML VIAL IVP PRN (10:00)
[2016-11-15] MEDS ORDERED: SODIUM CHLORIDE 0.9% FLUSH 5 ML FLUSH IVF PRN (10:00)
[2016-11-15] MEDS ORDERED: MISCELLANEOUS PHARMACY INFORMATION XX ONE (10:00)
[2016-11-15] MEDS ORDERED: MORPHINE SULFATE 30 MG/30 ML PCA IV SCH (10:00)
[2016-11-15] MEDS ORDERED: diphenhydrAMINE HCL 25 MG CAP PO PRN (10:00)
[2016-11-15] MEDS ORDERED: MISCELLANEOUS NURSING INFORMATION XX PRN (10:00)
[2016-11-15] MEDS ORDERED: ACETAMINOPHEN/HYDROcodone 325 MG/10 MG TAB PO PRN (10:00)
[2016-11-15] MEDS ORDERED: NALOXONE HCL 0.4 MG/ML AMP IV PRN (10:00)
[2016-11-15] MEDS ORDERED: MORPHINE SULFATE 4 MG/ML INJ IV PUSH PRN (10:00)
[2016-11-15] MEDS ORDERED: Post-op Orders (for Pharmacy) MISC XX ONE (11:00)
[2016-11-15] MEDS ORDERED: DO NOT ADM ANY ANTICOAGULANT DRUGS PRN (11:01)
[2016-11-15] MEDS ORDERED: *RESP: ALBUTEROL 2.5 MG/3 ML NEB (PRN) PERIprocedural Use ONLY NEB ONE (11:11)
[2016-11-15] MEDS ORDERED: *morphine SULFATE 8 MG/ML PERIprocedure ONLY ONE ×2 (11:15→11:35)
--- NOTE | 2016-11-15 11:22 | MP ---
cc: JOSE D AZAR DATE OF SURGERY: 11/15/2016 PREOPERATIVE DIAGNOSIS 1. Right distal tibia nonunion. 2. Failed right ankle arthrodesis. 3. Severe posttraumatic arthritis of hindfoot. POSTOPERATIVE DIAGNOSIS 1. Right distal tibia nonunion. 2. Failed right ankle arthrodesis. 3. Severe posttraumatic arthritis of hindfoot. SURGEON Jose D Azar MD. ASSISTANTS Johan Grayson PA-C, and Trevor Douglass PA-C. The surgical procedure was assisted by my physician diver assistant. My P.A. presence was necessary throughout this case for the manipulation and positioning of the surgical extremity. My P.A. was assisting me throughout the duration of this procedure. The skill set of a physician diver assistant was medically necessary to complete this procedure. During the surgical case the sound technician supervisor was working at the back table and the physician diver assistant was directly assisting me. ESTIMATED BLOOD LOSS 200 cc. TOURNIQUET TIME Zero. IMPLANTS USED Synthes hindfoot fusion nail. PROCEDURE 1. Removal of deep hardware. 2. Open treatment of right distal tibia and ankle nonunion. 3. Hind foot arthrodesis. 4. Posttraumatic arthritis. 5. Application of wound VAC dressing. DETAILS OF PROCEDURE Jaya is a 70-year male who is well-known to me from multiple previous injuries. He underwent multiple surgeries on his right ankle [place]. The patient developed a nonunion of his ankle and subsequently had a failed arthrodesis with severe deformity and severe posttraumatic arthritis. He also had a history of infection. Informed consent was obtained preoperatively. I had a lengthy discussion with the patient regarding the risks of surgery. He understands the risks of surgery to include bleeding, infection, injuries to arteries, nerves and blood vessels, nonunion, malunion, painful hardware, wound complications, wound infection, need for amputation, as well as medical complications including blood clot, stroke, heart attack and . I discussed preoperatively the possibility of a below-knee amputation versus surgical repair. The patient would like to try surgical repair prior to proceeding with amputation. He was brought to the operating room. He was given IV sedation general anesthesia. Antibiotics were held until cultures were obtained. The right leg was prepped with alcohol, followed by Hibiclens and draped in the usual sterile fashion. A timeout procedure was formed. The procedure began with a five-inch incision over the lateral ankle. A second incision was made over the medial ankle. Incisions were made through previous scars. Full-thickness flaps were carefully elevated. There was dense scar on both sides of the ankle from multiple surgeries. At this point attention was turned to hardware removal. The screws were localized under fluoroscopy. Osteotomes were used to remove bone around the screws to allow for removal. All the screws were now carefully removed. Next, attention was turned to debridement of the nonunion. There was severe deformity along the medial ankle secondary to nonunion. There was severe scar tissue throughout the nonunion site. Curets, rongeurs and osteotomes were used to debride bone and fibrous tissue from the nonunion site. The fracture was now mobilized. A portion of the medial malleolus was removed. Next, attention was turned to the ankle arthrodesis. The distal fibula was transected from anterior to posterior to allow for visualization of the ankle joint. This bone was harvested for bone graft. A large amount of local bone graft was harvested to use for later bone graft. The ankle joint was distracted. Osteotomes were used to repair the distal tibia. The distal tibia was shortened approximately 1 cm to allow for improved correction of the deformity. The ankle and subtalar joints were debrided with a TPS bur. The hindfoot and ankle were held in a reduced position. Large Steinmann pins were used to hold provisional fixation. Multiplanar fluoroscopy confirmed well-aligned foot and ankle. Next, attention was turned to arthrodesis of the hindfoot. A one-inch incision was made into the plantar aspect of the foot. A guide pin was placed through the calcaneus across the ankle joint into the tibia. Multiplanar fluoroscopy confirmed appropriate guide pin placement. The nail length was measured. A Synthes hindfoot fusion nail was utilized. An opening reamer was now placed over the guide pin. A ball-tip guidewire was now advanced in the tibial canal. Fluoroscopy confirmed guide pin placement. The canal was reamed up to size 14. A 13 mm x 180 mm hindfoot fusion nail was selected. The nail was passed over the guide pin and fully seated. Using the insertion handle as a guide three distal interlocking screws were placed. The nail was now impacted to apply compression. Two proximal interlocking screws were now placed. At this point the fibula was repaired using 3.5 cortical screws. Next, attention was turned to bone grafting. 1 cc of blood was mixed with a small nuCELL stem cell graft. Once this was thawed appropriately this was mixed with the bone graft from the ankle which had been placed through a bone mill. The ankle joint was now packed with bone graft. Final fluoroscopy revealed excellent alignment of the hindfoot fusion with well-placed hardware. The incisions were thoroughly irrigated. The subcutaneous tissue was closed with 3-0 PDS and skin was closed with 3-0 nylon. A VAC dressing was placed over the medial and lateral incisions. The patient was placed into a well-molded, well-padded posterior splint. He was transferred to the recovery room in stable condition. Needle and sponge counts were correct. Intraoperative cultures were obtained after removal of hardware. This tissue was sent for cultures. Antibiotics were given after cultures were obtained. MD MANI Rodriguez/DAVIN /10:48 AM /10:56 AM
[2016-11-15] MEDS: LACTATED RINGER'S 1000 ML INJ 1,000 ML IV SCH ×2 (11:45→23:26)
[2016-11-15] MEDS ORDERED: GLYCOPYRROLATE 1 MG/5 ML SYRINGE IV PUSH ONE (12:00)
[2016-11-15] MEDS ORDERED: LIDOCAINE HCL 1% PF 5 ML AMPULE OTHER ONE (12:00)
[2016-11-15] MEDS ORDERED: ePHEDrine/NS 25 MG/5 ML SYR IV ONE (12:00)
[2016-11-15] MEDS ORDERED: PROPOFOL 200 MG/20 ML AMP IV ONE (12:00)
[2016-11-15] MEDS ORDERED: ROCURONIUM INJ 50 MG/5 ML SYRINGE IV PUSH ONE (12:00)
[2016-11-15] MEDS ORDERED: ONDANSETRON HCL 4 MG/2 ML VIAL IV PUSH ONE (12:00)
[2016-11-15] MEDS ORDERED: NEOSTIGMINE 3 MG/3 ML SYR IV ONE (12:00)
[2016-11-15] MEDS ORDERED: MIDAZOLAM HCL 2 MG/2 ML VIAL IV ONE (12:00)
[2016-11-15] MEDS: CALCIUM/VITAMIN D 250 MG/125 U TAB PO SCH ×2 (13:30→16:58)
[2016-11-15] MEDS: PCA - TOTAL MG MORPHINE DELIVERED PER SHIFT SCH ×2 (14:00→22:00)
[2016-11-15] MEDS: KETOROLAC TROMETHAMINE 30 MG/ML (IVP) VIAL IVP SCH ×2 (14:00→22:37)
--- NOTE | 2016-11-15 15:20 | RADRPT ---
EXAM DATE/TIME: 11/15/2016 09:26 [facility] COMPARISON: TIBIA/FIBULA RIGHT (AP/LAT), October 14, 2015, 11:22. TIBIA/FIBULA RIGHT (AP/LAT), March 31, 2016, 11:19. INDICATIONS : Hardware removal and fusion of right ankle. MEDICAL HISTORY : Unobtainable. SURGICAL HISTORY : Unobtainable ENCOUNTER: Subsequent ACUITY: 4 - 6 months PAIN SCORE: Non-responsive. LOCATION: Right ankle FINDINGS: 7 spot intraoperative fluoroscopic views of the ankle demonstrate soft tissue swelling, retrograde in tramedullary jordi and screw fixation across the calcaneus and tibia. CONCLUSION: 1. Post surgical changes. Richard Daniel MD on November 15, 2016 at 15:17 Board Certified Radiologist. This report was verified electronically.
[2016-11-15] MEDS: ACETAMINOPHEN/HYDROcodone 325 MG/10 MG TAB PO PRN (16:58)
[2016-11-15] MEDS: ceFAZolin 2 GM PREMIX 50 ML IV SCH (16:58)
[2016-11-15] MEDS: DOCUSATE SODIUM 50 MG/SENNA 8.6 MG TAB PO SCH (20:21)
[2016-11-15] MEDS: TAMSULOSIN HCL 0.4 MG CAP PO SCH (20:21)
[2016-11-15] MEDS: METOPROLOL TARTRATE 100 MG TAB PO SCH (20:21)
[2016-11-15] MEDS: SODIUM CHLORIDE 0.9% FLUSH 5 ML FLUSH IVF SCH (20:21)
[2016-11-15] MEDS: PRAVASTATIN SOD 40 MG TAB PO SCH (20:21)
[2016-11-15] MEDS: ORPHENADRINE CITRATE 100 MG SUSTAINED RELEASE TAB PO SCH (20:21)
[2016-11-15] MEDS: VANCOMYCIN INJ 1,000 MG in SODIUM CHLOR 0.9% 250 ML INJ 250 ML IV SCH (20:22)
[2016-11-15] MEDS: BUDESONIDE-FORMOTEROL 160/4.5 MCG INHALER INH SCH (21:20)
[2016-11-16] VITALS: BP 105/59; PULSE 64; RESP 20; TEMP 97.6; O2SAT 97
[2016-11-16] MEDS: ceFAZolin 2 GM PREMIX 50 ML IV SCH ×3 (01:39→17:30)
[2016-11-16 04:00] VITALS: BP 123/61; PULSE 81; RESP 20; TEMP 98; O2SAT 97
[2016-11-16 05:45] LABS: HEMATOCRIT 33.2 % (39.0-51.0); REVIEW FLAG FINAL
[2016-11-16] MEDS: KETOROLAC TROMETHAMINE 30 MG/ML (IVP) VIAL IVP SCH ×2 (05:47→17:30)
[2016-11-16] MEDS: PCA - TOTAL MG MORPHINE DELIVERED PER SHIFT SCH ×3 (05:47→22:00)
[2016-11-16 08:00] VITALS: BP 116/64; PULSE 65; RESP 18; TEMP 97; O2SAT 95
--- NOTE | 2016-11-16 08:09 | PD.ORT.PN ---
Subjective Subjective Remarks Pain controlled. Resting with CPAP machine. No new complaints Objective Vitals Vital Signs Date Time Temp Pulse Resp B/P (MAP) Pulse Ox O2 Delivery O2 Flow Rate FiO2 11/16/16 05:47 18 11/16/16 04:00 98.0 81 20 123/61 (81) 97 11/16/16 00:00 97.6 64 20 105/59 (74) 97 11/15/16 22:00 17 11/15/16 21:00 93 11/15/16 19:00 98.1 62 16 103/68 (80) 90 11/15/16 17:04 94 11/15/16 16:05 98.3 80 16 123/67 (85) 11/15/16 15:30 98.5 65 17 139/71 (93) 99 11/15/16 14:00 16 11/15/16 13:58 96.0 61 18 110/73 (85) 94 11/15/16 13:00 61 18 115/61 (79) 95 Blow By 6 Simple Mask 11/15/16 12:15 97.7 60 14 115/58 (77) 97 Aerosol Mask 5 11/15/16 12:00 64 16 112/58 (76) 92 Aerosol Mask 5 11/15/16 11:45 65 18 110/62 (78) 92 Nasal Cannula 3 11/15/16 11:45 20 11/15/16 11:30 66 18 106/59 (75) 94 Nasal Cannula 3 11/15/16 11:15 70 20 119/56 (77) 92 Aerosol Mask 6 11/15/16 11:06 97.9 66 18 108/53 (71) 94 Simple Mask 6 I/O 11/15/16 11/15/16 11/15/16 11/16/16 11/16/16 11/16/16 07:00 15:00 23:00 07:00 15:00 23:00 Intake Total 1560 ml 270 ml 1666 ml Output Total 650 ml 850 ml 700 ml Balance 910 ml -580 ml 966 ml Intake Oral 220 ml 120 ml IV Total 160 ml 50 ml 1546 ml Other 1400 ml Output Urine Total 850 ml 450 ml Drainage Total 300 ml 250 ml Estimated Blood Loss 350 ml # Bowel Movements 0 Result Diagram: 11/16/16 0420 Imaging Last 72 hours Impressions Ankle X-Ray 11/15/16 0000 Signed Impressions: Service Date/Time: Tuesday, November 15, 2016 09:26 - CONCLUSION: 1. Post surgical changes. Richard Daniel MD Objective Remarks Right lower extremity: Clean dry dressings intact over ankle with splint in place. Wound VAC with appropriate seal. Intact sensation in all his toes and is able to move toes appropriately Assessment & Plan Assessment and Plan Right hindfoot fusion with removal of hardware POD 1 Nonweightbearing right lower extremity Maintain wound VAC(wound VAC is incisional VAC) We will take down wound VAC either tomorrow or next day then plan for discharge to home Strict elevation of ankle to decrease swelling Lovenox Case management for home discharge planning Follow-up Dr. De La Torre or PA in 2 weeks Quique Grayson Jr. Nov 16, 2016 08:09
[2016-11-16] MEDS: SODIUM CHLORIDE 0.9% FLUSH 5 ML FLUSH IVF SCH ×2 (09:00→20:30)
[2016-11-16] MEDS: TIOTROPIUM BROMIDE 18 MCG INH INH SCH (09:00)
[2016-11-16] MEDS: ORPHENADRINE CITRATE 100 MG SUSTAINED RELEASE TAB PO SCH ×2 (09:17→20:31)
[2016-11-16] MEDS: METOPROLOL TARTRATE 100 MG TAB PO SCH ×2 (09:17→20:31)
[2016-11-16] MEDS: CHOLECALCIFEROL (VIT D3) 5000 UNIT CAP PO SCH (09:17)
[2016-11-16] MEDS: PANTOPRAZOLE SOD 20 MG DELAYED RELEASE TAB PO SCH (09:17)
[2016-11-16] MEDS: DOCUSATE SODIUM 50 MG/SENNA 8.6 MG TAB PO SCH ×2 (09:17→20:31)
[2016-11-16] MEDS: ALLOPURINOL 300 MG TAB PO SCH (09:17)
[2016-11-16] MEDS: DIGOXIN 0.25 MG TAB PO SCH (09:17)
[2016-11-16] MEDS: FERROUS SULFATE 325 MG (65 MG ELEMENTAL IRON) TAB PO SCH (09:17)
[2016-11-16] MEDS: DILTIAZEM-CD 180 MG CAP ER PO SCH (09:17)
[2016-11-16] MEDS: CALCIUM/VITAMIN D 250 MG/125 U TAB PO SCH ×3 (09:17→17:37)
[2016-11-16] MEDS: VANCOMYCIN INJ 1,000 MG in SODIUM CHLOR 0.9% 250 ML INJ 250 ML IV SCH ×2 (09:20→20:33)
[2016-11-16] MEDS: BUDESONIDE-FORMOTEROL 160/4.5 MCG INHALER INH SCH ×2 (09:20→20:30)
[2016-11-16] MEDS: ENOXAPARIN SODIUM 40 MG/0.4 ML SYRINGE SQ SCH (09:25)
[2016-11-16 12:00] VITALS: BP 105/56; PULSE 54; RESP 18; TEMP 96.6; O2SAT 94
[2016-11-16 15:43] VITALS: BP 96/45; PULSE 57; RESP 18; TEMP 97.3; O2SAT 97
[2016-11-16] MEDS: LACTATED RINGER'S 1000 ML INJ 1,000 ML IV SCH (17:39)
[2016-11-16 18:57] VITALS: BP 108/51; PULSE 75; RESP 17; TEMP 98.8; O2SAT 94
[2016-11-16] MEDS: TAMSULOSIN HCL 0.4 MG CAP PO SCH (20:30)
[2016-11-16] MEDS: PRAVASTATIN SOD 40 MG TAB PO SCH (20:31)
[2016-11-16] MEDS ORDERED: ZOLPIDEM TARTRATE 5 MG TAB PO PRN (21:00)
[2016-11-17] VITALS: BP 101/50; PULSE 56; RESP 16; TEMP 98.5; O2SAT 96
[2016-11-17] MEDS: LACTATED RINGER'S 1000 ML INJ 1,000 ML IV SCH ×2 (00:30→14:37)
[2016-11-17] MEDS: ceFAZolin 2 GM PREMIX 50 ML IV SCH ×3 (02:01→16:44)
[2016-11-17 04:00] VITALS: BP 134/76; PULSE 69; RESP 17; TEMP 96.8; O2SAT 96
[2016-11-17] MEDS: PCA - TOTAL MG MORPHINE DELIVERED PER SHIFT SCH ×3 (06:00→19:56)
[2016-11-17] MEDS: ACETAMINOPHEN/HYDROcodone 325 MG/10 MG TAB PO PRN ×5 (06:03→23:16)
[2016-11-17 08:00] VITALS: BP 123/59; PULSE 66; RESP 18; TEMP 96.7; O2SAT 93
[2016-11-17] MEDS: SODIUM CHLORIDE 0.9% FLUSH 5 ML FLUSH IVF SCH ×2 (09:00→19:55)
[2016-11-17] MEDS: VANCOMYCIN INJ 1,000 MG in SODIUM CHLOR 0.9% 250 ML INJ 250 ML IV SCH (09:05)
[2016-11-17] MEDS: ALLOPURINOL 300 MG TAB PO SCH (09:07)
[2016-11-17] MEDS: CALCIUM/VITAMIN D 250 MG/125 U TAB PO SCH ×3 (09:07→16:44)
[2016-11-17] MEDS: ORPHENADRINE CITRATE 100 MG SUSTAINED RELEASE TAB PO SCH ×2 (09:08→19:55)
[2016-11-17] MEDS: DILTIAZEM-CD 180 MG CAP ER PO SCH (09:08)
[2016-11-17] MEDS: CHOLECALCIFEROL (VIT D3) 5000 UNIT CAP PO SCH (09:08)
[2016-11-17] MEDS: DIGOXIN 0.25 MG TAB PO SCH (09:08)
[2016-11-17] MEDS: DOCUSATE SODIUM 50 MG/SENNA 8.6 MG TAB PO SCH ×2 (09:08→19:55)
[2016-11-17] MEDS: FERROUS SULFATE 325 MG (65 MG ELEMENTAL IRON) TAB PO SCH (09:08)
[2016-11-17] MEDS: METOPROLOL TARTRATE 100 MG TAB PO SCH ×2 (09:09→19:55)
[2016-11-17] MEDS: PANTOPRAZOLE SOD 20 MG DELAYED RELEASE TAB PO SCH (09:09)
[2016-11-17] MEDS: BUDESONIDE-FORMOTEROL 160/4.5 MCG INHALER INH SCH ×2 (09:10→19:55)
--- NOTE | 2016-11-17 10:31 | PD.ORT.PN ---
Subjective Subjective Remarks Pain controlled. Resting with CPAP machine. No new complaints Objective Vitals Vital Signs Date Time Temp Pulse Resp B/P (MAP) Pulse Ox O2 Delivery O2 Flow Rate FiO2 11/17/16 06:00 18 11/17/16 04:00 96.8 69 17 134/76 (95) 96 11/17/16 00:00 98.5 56 16 101/50 (67) 96 11/16/16 22:00 17 11/16/16 18:57 98.8 75 17 108/51 (70) 94 11/16/16 15:43 97.3 57 18 96/45 (62) 97 11/16/16 14:00 15 11/16/16 12:00 96.6 54 18 105/56 (72) 94 I/O 11/16/16 11/16/16 11/16/16 11/17/16 11/17/16 11/17/16 07:00 15:00 23:00 07:00 15:00 23:00 Intake Total 1666 ml 1480 ml 1081 ml Output Total 700 ml 700 ml Balance 966 ml 1480 ml 381 ml Intake Oral 120 ml 480 ml 240 ml IV Total 1546 ml 1000 ml 841 ml Output Urine Total 450 ml 600 ml Drainage Total 250 ml 100 ml # Bowel Movements 0 0 Result Diagram: 11/16/16 0420 Imaging Last 72 hours Impressions Ankle X-Ray 11/15/16 0000 Signed Impressions: Service Date/Time: Tuesday, November 15, 2016 09:26 - CONCLUSION: 1. Post surgical changes. Richard Daniel MD Objective Remarks Right lower extremity: Clean dry dressings intact over ankle with splint in place. Wound VAC with appropriate seal. Intact sensation in all his toes and is able to move toes appropriately Assessment & Plan Assessment and Plan Right hindfoot fusion with removal of hardware POD 2 Nonweightbearing right lower extremity Maintain wound VAC(wound VAC is incisional VAC) We will take down wound VAC either tomorrow then plan for discharge to home Strict elevation of ankle to decrease swelling Lovenox Case management for home discharge planning Follow-up Dr. De La Torre or PA in 2 weeks Quique Grayson Jr. Nov 17, 2016 10:31
[2016-11-17] MEDS: TIOTROPIUM BROMIDE 18 MCG INH INH SCH (10:48)
[2016-11-17] MEDS: ENOXAPARIN SODIUM 40 MG/0.4 ML SYRINGE SQ SCH (10:49)
[2016-11-17 12:00] VITALS: BP 101/64; PULSE 76; RESP 18; TEMP 96.8; O2SAT 90
[2016-11-17 17:30] VITALS: BP 125/69; PULSE 57; RESP 16; TEMP 96.6; O2SAT 90
[2016-11-17] MEDS: TAMSULOSIN HCL 0.4 MG CAP PO SCH (19:54)
[2016-11-17] MEDS: PRAVASTATIN SOD 40 MG TAB PO SCH (19:55)
[2016-11-17 20:05] VITALS: BP 110/70; PULSE 55; RESP 18; TEMP 97.4; O2SAT 94
[2016-11-18 00:10] VITALS: BP 103/64; PULSE 56; RESP 18; TEMP 97.9; O2SAT 94
[2016-11-18] MEDS: LACTATED RINGER'S 1000 ML INJ 1,000 ML IV SCH (01:30)
[2016-11-18] MEDS: ceFAZolin 2 GM PREMIX 50 ML IV SCH ×2 (02:04→11:26)
[2016-11-18] MEDS: ACETAMINOPHEN/HYDROcodone 325 MG/10 MG TAB PO PRN ×2 (02:40→06:56)
[2016-11-18 04:21] VITALS: BP 121/71; PULSE 60; RESP 18; TEMP 97.2; O2SAT 99
--- NOTE | 2016-11-18 07:21 | PD.ORT.PN ---
Subjective Subjective Remarks Pain controlled. No new complaints Objective Vitals Vital Signs Date Time Temp Pulse Resp B/P (MAP) Pulse Ox O2 Delivery O2 Flow Rate FiO2 11/18/16 04:21 97.2 60 18 121/71 (88) 99 11/18/16 00:10 97.9 56 18 103/64 (77) 94 11/17/16 20:05 97.4 55 18 110/70 (83) 94 11/17/16 19:56 18 11/17/16 17:50 16 11/17/16 17:30 96.6 57 16 125/69 (87) 90 11/17/16 14:00 16 11/17/16 12:00 96.8 76 18 101/64 (76) 90 11/17/16 08:00 96.7 66 18 123/59 (80) 93 I/O 11/17/16 11/17/16 11/17/16 11/18/16 11/18/16 11/18/16 07:00 15:00 23:00 07:00 15:00 23:00 Intake Total 1081 ml 840 ml 120 ml Output Total 700 ml 1100 ml 10 ml Balance 381 ml -1100 ml 830 ml 120 ml Intake Oral 240 ml 840 ml 120 ml IV Total 841 ml Output Urine Total 600 ml 1100 ml Drainage Total 100 ml 10 ml # Voids 3 2 # Bowel Movements 0 0 0 Result Diagram: 11/16/16 0420 Imaging Last 72 hours Impressions Ankle X-Ray 11/15/16 0000 Signed Impressions: Service Date/Time: Tuesday, November 15, 2016 09:26 - CONCLUSION: 1. Post surgical changes. Richard Daniel MD Objective Remarks Right lower extremity: Clean dry dressings intact over ankle with splint in place. Wound VAC taken down and incisions are approximated and healing appropriately no signs of necrosis. Distally intact sensation with good capillary refills mild swelling Assessment & Plan Assessment and Plan Right hindfoot fusion with removal of hardware POD 3 Nonweightbearing right lower extremity Discontinue wound VAC New dressing applied. Orthotec for new double posterior short leg splint Strict elevation of ankle to decrease swelling Lovenox Discharged home today Follow-up Dr. De La Torre or PA in 2 weeks Quique Grayson Jr. Nov 18, 2016 07:20
[2016-11-18] MEDS: PCA - TOTAL MG MORPHINE DELIVERED PER SHIFT SCH (07:45)
[2016-11-18 08:00] VITALS: BP 123/63; PULSE 63; RESP 18; TEMP 97.8; O2SAT 92
[2016-11-18] MEDS: CALCIUM/VITAMIN D 250 MG/125 U TAB PO SCH (08:34)
[2016-11-18] MEDS: PANTOPRAZOLE SOD 20 MG DELAYED RELEASE TAB PO SCH (08:36)
[2016-11-18] MEDS: ALLOPURINOL 300 MG TAB PO SCH (08:36)
[2016-11-18] MEDS: FERROUS SULFATE 325 MG (65 MG ELEMENTAL IRON) TAB PO SCH (08:36)
[2016-11-18] MEDS: CHOLECALCIFEROL (VIT D3) 5000 UNIT CAP PO SCH (08:36)
[2016-11-18] MEDS: DOCUSATE SODIUM 50 MG/SENNA 8.6 MG TAB PO SCH (08:36)
[2016-11-18] MEDS: METOPROLOL TARTRATE 100 MG TAB PO SCH (08:36)
[2016-11-18] MEDS: DILTIAZEM-CD 180 MG CAP ER PO SCH (08:36)
[2016-11-18] MEDS: DIGOXIN 0.25 MG TAB PO SCH (08:36)
[2016-11-18] MEDS: ORPHENADRINE CITRATE 100 MG SUSTAINED RELEASE TAB PO SCH (08:36)
[2016-11-18] MEDS: BUDESONIDE-FORMOTEROL 160/4.5 MCG INHALER INH SCH (08:37)
[2016-11-18] MEDS: TIOTROPIUM BROMIDE 18 MCG INH INH SCH (08:38)
[2016-11-18] MEDS: SODIUM CHLORIDE 0.9% FLUSH 5 ML FLUSH IVF SCH (08:42)
[2016-11-18] MEDS: ENOXAPARIN SODIUM 40 MG/0.4 ML SYRINGE SQ SCH (11:26)
--- NOTE | 2016-11-30 08:52 | HHI.DS ---
Discharge Summary Admission Date Nov 15, 2016 at 05:43 Discharge Date: Nov 18, 2016 Admitting Diagnosis Failed right hindfoot fusion Diagnosis: (1) Leg fracture, right Diagnosis: Principal ICD Codes: S82.91XA - Unspecified fracture of right lower leg, initial encounter for closed fracture Status: Acute Procedures Removal of hardware with right hindfoot fusion and stem cell graft PE at Discharge Right lower extremity: Clean dry dressings intact over ankle with splint in place. Wound VAC taken down and incisions are approximated and healing appropriately no signs of necrosis. Distally intact sensation with good capillary refills mild swelling Hospital Course Patient was admitted from outpatient basis for the right hindfoot fusion. He uses undergone a ankle fusion in [place] in the past. It failed. He tolerated procedure well. He is admitted 6 north. He had a wound vacuum on his leg wound due to swelling. It was discontinued on postoperative day 3. He was out of bed with therapy and pain control. He is hemodynamically stable and fit for discharge home with home health care. He'll be placed into a short-leg remain shortly nonweightbearing on the right leg. I will follow up in the office Dr. Parsons or his PA in 2 weeks. Pt Condition on Discharge: Fair Discharge Disposition: Discharge Home Discharge Instructions Diet Instructions: As Tolerated, No Restrictions Activities You Can Perform: Non Weight Bearing Follow up Referrals: Orthopedics - 2 Weeks @ [facility] with Jose D Parsons MD New Medications: Hydrocodone-Acetaminophen (Hydrocodone-Acetaminophen) 10-325 mg Tab 1 TAB PO Q4H PRN for PAIN, #60 TAB 0 Refills Continued Medications: Allopurinol (Allopurinol) 300 Mg Tab 300 MG PO DAILY for Gout, #30 TAB 0 Refills Apixaban (Eliquis) 5 Mg Tab 5 MG PO BID for Blood Clot Prevention, #60 TAB 0 Refills Budesonide-Formoterol Inh (Symbicort Inh) 160-4.5 Mcg/Act Aero 2 PUFF INH Q12HR, #1 INHALER 0 Refills Calcium Carbonate (Calcium Oyster Shell) 1,250 Mg Tab 2500 MG PO DAILY for Calcium Supplement, TAB 0 Refills 1,250 mg calcium carbonate (500 mg elemental calcium) Cholecalciferol (Vitamin D3) 5,000 Unit Cap 5000 UNITS PO WEEKLY for Nutritional Supplement, #1 BOTTLE 0 Refills Digoxin (Digoxin) 0.25 Mg Tab 0.25 MG PO DAILY for Regulate Heart Beat, #30 TAB 0 Refills Diltiazem (Diltiazem) 90 Mg Tab 180 MG PO DAILY for Angina, #120 TAB 0 Refills Ferrous Sulfate (Ferrous Sulfate) 325 Mg (65 Mg Iron) Tablet 325 MG PO DAILY for Nutritional Supplement, #30 TAB 0 Refills Metoprolol Tartrate (Metoprolol Tartrate) 100 Mg Tab 100 MG PO BID, #60 TAB 0 Refills Omeprazole (Omeprazole) 20 Mg Tab 20 MG PO DAILY, #30 TAB 0 Refills Orphenadrine ER 12 HR (Orphenadrine ER 12 HR) 100 Mg Tab 100 MG PO Q12HR for Muscle Spasm, #60 TAB 0 Refills Simvastatin (Simvastatin) 20 Mg Tab 20 MG PO HS for Cholesterol Management, #30 TAB 0 Refills Tamsulosin (Tamsulosin) 0.4 Mg Cap 0.8 MG PO HS for Manage Prostate Problems, #60 CAP 0 Refills Tiotropium Inh (Spiriva Handihaler) 18 Mcg Cap 18 MCG INH DAILY for COPD, #30 CAP 0 Refills 1 capsule = 18 mcg Discontinued Medications: Meloxicam (Meloxicam) 15 Mg Tab 15 MG PO DAILY for Arthritis Pain, #30 TAB 0 Refills Trevor Douglass Nov 30, 2016 08:52
== END 2016-11-18 13:50 | disposition home or self-care (01) | DRG 494 ==
LOC: HSDI 05:43 → N06A 13:59
PROVIDERS: ADMIT Orthopaedic Surgery Orthopaedic Trauma; ATTEND Orthopaedic Surgery Orthopaedic Trauma
PROC: 0SGF0ZZ (ICD-10-PCS; 2016-11-15)
PROC: 0SPFX4Z Removal of Internal Fixation Device from Right Ankle Joint, External Approach (ICD-10-PCS; 2016-11-15)
PROC: 0QSG04Z Reposition Right Tibia with Internal Fixation Device, Open Approach (ICD-10-PCS; principal; 2016-11-15 06:49)
DX: S82.301K Unspecified fracture of lower end of right tibia, subsequent encounter for closed fracture with nonunion (principal); M12.50 Traumatic arthropathy, unspecified site; X58.XXXD Exposure to other specified factors, subsequent encounter; Z98.1 Arthrodesis status; Z47.2 Encounter for removal of internal fixation device
CPT/HCPCS: 73600; 76000; 85014; 85018; 85027; 87015; 87070; 87102; 87116; 87176; 87205; 87206; 94150; 94664; C1713; J0131; J0690; J1580; J1650; J1885; J2250; J2270; J2405; J2710; J2795; J3010; J3370; J7050; J7120; J7613

== ENCOUNTER 2016-12-27 06:24 | Inpatient (IN) | payer MEDICARE, BC ==
[~2016-12-27] VITALS: Ht 190.5 cm; Wt 105.6 kg
[~2016-12-27 06:24] MED LIST changes: +FERR325T18 PO; -FERR325T8 PO; +HYDR-3583 PO; -MELO-1 PO; -OMEP20TA PO; +OMEP20TA93 PO; -SIMV5TAB3 PO
[2016-12-27] MEDS ORDERED: METOPROLOL TARTRATE 25 MG TAB PO PRN (07:00)
[2016-12-27] MEDS ORDERED: SODIUM CHLORID 0.9% 500 ML IV PRN (07:00)
[2016-12-27] MEDS ORDERED: CHLORHEXIDINE GLUCONATE 2 % 1 PACK (2 CLOTHS) TOPICAL PRN (07:00)
[2016-12-27] MEDS ORDERED: CHLORHEXIDINE GLUCONATE 4% SOLN 120 ML BTL TOPICAL SCH (07:00)
[2016-12-27] MEDS ORDERED: POVIDONE IODINE 5% (ANTISEPSIS KIT) 4 APPLICATIONS EACH NARE PRN (07:00)
[2016-12-27] MEDS ORDERED: LACTATED RINGER'S 1000 ML IV PRN (07:00)
[2016-12-27] MEDS ORDERED: INSULIN HUMAN REGULAR 1,000 UNITS/10 ML VIAL SQ PRN (07:00)
[2016-12-27] MEDS ORDERED: VANCOMYCIN HCL 1000 MG VIAL ONE (08:47)
[2016-12-27] MEDS ORDERED: SODIUM CHLOR 0.9% 250 ML INJ 250 ML ONE (08:47)
[2016-12-27] MEDS ORDERED: GENTAMICIN SULFATE 80 MG/2 ML VIAL ONE (08:47)
[2016-12-27] MEDS ORDERED: ceFAZolin 2 GM PREMIX 50 ML ONE (08:47)
[2016-12-27] MEDS ORDERED: ONDANSETRON HCL 4 MG/2 ML VIAL IVP PRN (10:45)
[2016-12-27] MEDS ORDERED: MORPHINE SULFATE 4 MG/ML INJ IV PUSH PRN (10:45)
[2016-12-27] MEDS ORDERED: DO NOT ADM ANY ANTICOAGULANT DRUGS PRN (10:48)
--- NOTE | 2016-12-27 10:50 | PD.OP ---
cc: Jose D De La Torre MD Operative Report Date of Surgery: Dec 27, 2016 Preoperative Diagnosis: Right ankle wound infection Postoperative Diagnosis: Procedure: Irrigation and debridement of right ankle and tibia Anesthesia: Gen. Surgeon: Jose D De La Torre [employer] Emergency Services Manager(s): KYLIE Parker PA-C The surgical procedure was assisted by my physician bilingual medical assistant. My P.A. presence was necessary throughout this case for the manipulation and positioning of the surgical extremity. My P.A. was assisting me throughout the duration of this procedure. The skill set of a physician bilingual medical assistant was medically necessary to complete this procedure. During the surgical case the surgical forceps fabricator was working at the back table and the physician bilingual medical assistant was directly assisting me. Operation and Findings: Jaya recently had right ankle surgery for deformity correction and hindfoot arthrodesis. Patient was seen in clinic yesterday and found to have significant wound dehiscence with infection. Informed consent was obtained preoperatively and operative site was marked. He was brought to operating room. He was given IV sedation and general anesthesia. Antibiotics were held until cultures were obtained. Right leg was prepped with alcohol followed by Hibiclens and draped usual sterile fashion. Timeout procedure was performed. Procedure began with debridement of the right ankle. The medial incision was thoroughly debrided. An excisional debridement was performed. Skin subcutaneous tissue fascia and bone were sharply debrided. A scalpel was used to debride this soft tissue. Curettes and rongeurs were used to debride the tibia. Cultures were obtained from deep tissue. After thorough debridement antibiotics were given. The wound was now thoroughly irrigated with pulsatile lavage. A small area of the incision was closed to cover up one of the screws. The remainder of the incision was not closable. A VAC dressing was now placed over the open wound. VAC dressing was sealed appropriately. Patient was awakened and transferred to recovery in stable condition. Jose D De La Torre MD Dec 27, 2016 10:50
[2016-12-27] MEDS ORDERED: *RESP: ALBUTEROL 2.5 MG/3 ML NEB (PRN) PERIprocedural Use ONLY NEB ONE (10:55)
[2016-12-27] MEDS ORDERED: Post-op Orders (for Pharmacy) MISC XX ONE (11:47)
[2016-12-27] MEDS ORDERED: DEXAMETHASONE SOD PHOS 4 MG/ML VIAL IV ONE (12:00)
[2016-12-27] MEDS ORDERED: PROPOFOL 200 MG/20 ML AMP IV ONE (12:00)
[2016-12-27] MEDS ORDERED: GLYCOPYRROLATE 1 MG/5 ML SYRINGE IV PUSH ONE (12:00)
[2016-12-27] MEDS ORDERED: MORPHINE SULFATE 4 MG/ML INJ IV ONE (12:00)
[2016-12-27] MEDS ORDERED: PHENYLEPH/NS 1000 MCG/10 ML SYR IV ONE (12:00)
[2016-12-27] MEDS ORDERED: ePHEDrine/NS 25 MG/5 ML SYR IV ONE (12:00)
[2016-12-27] MEDS ORDERED: LIDOCAINE HCL 1% PF 5 ML AMPULE OTHER ONE (12:00)
[2016-12-27] MEDS ORDERED: MIDAZOLAM HCL 2 MG/2 ML VIAL IV ONE (12:00)
[2016-12-27] MEDS: ACETAMINOPHEN/HYDROcodone 325 MG/10 MG TAB PO PRN ×3 (12:06→21:15)
--- NOTE | 2016-12-27 12:30 | PD.VS.CON ---
History of Present Illness Chief Complaint: Non healing right ankle wound Consult Requested by: Dr. Parsons History of Present Illness Mr. Macias is a 71/M who c/o non healing right ankle wound since October Pt s/p RIGHT ankle irrigation and debridement of ankle and tibia (POD 0) Right foot w/ post op fang wrap and wound vac Pt denies claudication/rest pain (Leatha Noyola) Past/Family/Social History Past Medical History Atrial fibrillation COPD Sleep apnea BPH Coronary artery disease. 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) Lives w/ his daughter (Leatha Noyola) Home Medications Active Scripts Hydrocodone-Acetaminophen (Hydrocodone-Acetaminophen) 10-325 mg Tab, 1 TAB PO Q4H Y for PAIN, #60 TAB 0 Refills Prov:Trevor Douglass 11/15/16 Reported Medications Ferrous Sulfate (Ferrous Sulfate) 325 Mg (65 Mg Iron) Tablet, 325 MG PO DAILY for Nutritional Supplement, #30 TAB 0 Refills 10/27/16 Calcium Carbonate (Calcium Oyster Shell) 1,250 Mg Tab, 2500 MG PO DAILY for Calcium Supplement, TAB 0 Refills 1,250 mg calcium carbonate (500 mg elemental calcium) 10/27/16 Simvastatin (Simvastatin) 20 Mg Tab, 20 MG PO HS for Cholesterol Management, # 30 TAB 0 Refills 10/27/16 Cholecalciferol (Vitamin D3) 5,000 Unit Cap, 5000 UNITS PO WEEKLY for Nutritional Supplement, #1 BOTTLE 0 Refills 03/31/16 Tamsulosin (Tamsulosin) 0.4 Mg Cap, 0.8 MG PO HS for Manage Prostate Problems, # 60 CAP 0 Refills 03/03/16 Orphenadrine ER 12 HR (Orphenadrine ER 12 HR) 100 Mg Tab, 100 MG PO Q12HR for Muscle Spasm, #60 TAB 0 Refills 03/03/16 Budesonide-Formoterol Inh (Symbicort Inh) 160-4.5 Mcg/Act Aero, 2 PUFF INH Q12HR , #1 INHALER 0 Refills 03/03/16 Tiotropium Inh (Spiriva Handihaler) 18 Mcg Cap, 18 MCG INH DAILY for COPD, #30 CAP 0 Refills 1 capsule = 18 mcg 03/03/16 Diltiazem (Diltiazem) 90 Mg Tab, 180 MG PO DAILY for Angina, #120 TAB 0 Refills 03/03/16 Omeprazole (Omeprazole) 20 Mg Tab, 20 MG PO DAILY, #30 TAB 0 Refills 03/03/16 Digoxin (Digoxin) 0.25 Mg Tab, 0.25 MG PO DAILY for Regulate Heart Beat, #30 TAB 0 Refills 03/03/16 Metoprolol Tartrate (Metoprolol Tartrate) 100 Mg Tab, 100 MG PO BID, #60 TAB 0 Refills 03/03/16 Allopurinol (Allopurinol) 300 Mg Tab, 300 MG PO DAILY for Gout, #30 TAB 0 Refills 03/03/16 Apixaban (Eliquis) 5 Mg Tab, 5 MG PO BID for Blood Clot Prevention, #60 TAB 0 Refills 03/03/16 Discontinued Scripts Walker/Adult/Folding (Walker/Adult/Folding) 1 Mis Mis, 1 EA .ROUTE DIRECTED, #1 EA 0 Refills Prov:Trevor Douglass 03/31/16 Coded Allergies: No Known Allergies (Unverified Allergy, Unknown, 12/27/16) Physical Exam Vitals/I&O Date Time Temp Pulse Resp B/P (MAP) Pulse Ox O2 Delivery O2 Flow Rate FiO2 12/27/16 10:53 97.0 61 20 120/66 (84) 94 Nasal Cannula 3 12/27/16 07:47 97.0 66 18 128/69 (88) 96 12/27/16 12/27/16 12/27/16 07:00 15:00 23:00 Intake Total 1000 ml Output Total 10 ml Balance 990 ml Neuro: A&OX3 Pt w/o neurological deficits Neck: No JVD distention Heart: +S1,S2 Lungs: CTA Abdomen: S/NT Vascular: Palpable R/L Femoral Pulses (R>L) LE warm with motor intact R LE with post op fang wrap/wound vac (Leatha Noyola) Date/Time Source Procedure Growth Status 12/27/16 10:21 Wound Ankle Fungal Smear Pending Received 12/27/16 10:21 Wound Ankle Fungal Culture Pending Received (Leatha Noyola) Assessment and Plan Assessment: (1) non healing wound right foot Plan Mr. Macias is a 71/M who c/o a non healing Right foot wound Pt s/p RIGHT foot irrigation/debridement POD 0 Pt denies claudication/rest pain Plan Ordered KRISHNA arterial study Will review KRISHNA exam once completed to determine the next plan of action Discussed KRISHNA/potential PAD w/ patient Questions answered Leatha CHONG [facility] [place] [phone] (Leatha Noyola) Plan Nonhealing wound but not sure related to arterial insufficiency. Strong Doppler signals in distal foot. Will review wound with ortho team tomorrow when surgical dressing removed. Sanjay Pina MD FACS RPVI pharmacology professor [facility] - Heart and Vascular Surgery at [facility] [phone] (Sanjay Pina MD) Leatha Noyola Dec 27, 2016 12:30 Sanjay Pina MD Dec 28, 2016 10:54
[2016-12-27 16:00] VITALS: BP_SYST 159; BP_SYST 160; BP_DIAS 79; BP_DIAS 80; PULSE 57; PULSE 66; RESP 19; RESP 20; TEMP 97; O2SAT 96; O2SAT 97
[2016-12-27] MEDS: ceFAZolin 2 GM PREMIX 50 ML IV SCH (17:09)
--- NOTE | 2016-12-27 17:19 | MB ---
cc: CCList DATE OF CONSULTATION: 12/27/2016 REQUESTING PHYSICIAN: Dr. De La Torre. REASON FOR CONSULTATION: Right ankle wound infection with exposed hardware. HISTORY OF PRESENT ILLNESS This is a 71-year-old white male who was brought into the hospital for surgery of the right ankle. The patient was found to have a wound of the ankle with exposed hardware. The patient is postop from prior right ankle surgery. He underwent irrigation and debridement of the right ankle and the wound vac application. Cultures were taken. The patient had recent surgery for deformity correction of the hind foot. Approximately 2 weeks ago he developed opening of the inner aspect of the incision at the ankle. He also has had a previous hardware removal of the r. ankle in October for failed arthrodesis surgery and in March 2016 removal of hardware and open reduction and internal fixation of right tibia fracture with iliac bone graft and placement of stem cell graft. The patient notes that he has also been taking the medication to help improve bone growth. He has no fever, chills, nausea, vomiting and denies other symptoms. This consultation is requested for infection management. PAST MEDICAL HISTORY Right ankle surgery. Bilateral knee replacements. Right hand surgery. Gastric bypass Spinal surgery Hypercholesteremia Hypertension. Gastroesophageal reflux disease. ALLERGIES NO KNOWN DRUG ALLERGIES. MEDICATIONS 1. Vancomycin auscultate. 2. Protonix. 3. Cardizem. 4. Lanoxin 5. Vitamin D3. 6. Allopurinol 7. Eliquis 8. Symbicort. 9. Lopressor. 10. Norflex. 11. Flomax. 12. Pravachol. 13. [place] 10 p.r.n. SOCIAL HISTORY No tobacco use. The patient is a former smoker. No alcohol. No illicit drugs. FAMILY HISTORY Noncontributory. REVIEW OF SYSTEMS Review of systems negative 10-point review. PHYSICAL EXAMINATION IN GENERAL: This is a pleasant well-developed male who is in no acute distress. He is awake and alert and oriented. VITAL SIGNS: Temperature 97.3, Blood pressure 159/79, respirations 19, heart rate 57. HEAD, EYES, EARS, NOSE, AND THROAT: The head is atraumatic. Extraocular movements grossly intact, pupils reactive to light. No icterus. Oropharynx moist mucosa. No lesions. NECK: Supple. No adenopathy. LUNGS: Clear breath sounds HEART: Regular S1-S2 without murmurs. ABDOMEN: Bowel sounds present, soft, benign. RECTUM: Rectal was not performed. EXTREMITIES: The right foot at the ankle is wrapped in a surgical dressing and has a wound vac exiting the inner aspect of the ankle which has serosanguineous drainage. SKIN: No rash. NEUROLOGIC: Nonfocal. LABORATORY DATA Wound culture pending. IMPRESSION: R. ankle wound infection. Post debridement. RECOMMENDATIONS 1. Continue vancomycin 2. Monitor wound culture results 3. Monitor clinical status. 4. Due to the nature of the wound. The patient will require up to 6 weeks of IV antibiotics depending on the culture results. The cultures will be monitored for further determination on antibiotic choice. Thank you for this consultation. The patient's progress will be monitored and further recommendations will be given upon followup if necessary. Neel Han MD FD/carno /4:35 PM /5:12 PM [facility]
[2016-12-27 19:33] VITALS: O2SAT 97
[2016-12-27 20:00] VITALS: BP 141/84; PULSE 58; RESP 20; TEMP 95.8; O2SAT 94
[2016-12-27] MEDS: METOPROLOL TARTRATE 100 MG TAB PO SCH (21:13)
[2016-12-27] MEDS: PRAVASTATIN SOD 40 MG TAB PO SCH (21:13)
[2016-12-27] MEDS: APIXABAN 5 MG TABLET PO SCH (21:14)
[2016-12-27] MEDS: TAMSULOSIN HCL 0.4 MG CAP PO SCH (21:14)
[2016-12-27] MEDS: BUDESONIDE-FORMOTEROL 160/4.5 MCG INHALER INH SCH (21:15)
[2016-12-27] MEDS: ORPHENADRINE CITRATE 100 MG SUSTAINED RELEASE TAB PO SCH (21:16)
[2016-12-27] MEDS: VANCOMYCIN INJ 1,000 MG in SODIUM CHLOR 0.9% 250 ML INJ 250 ML IV SCH (21:18)
[2016-12-28] VITALS (7 sets, daily range): BP systolic 110–140; BP diastolic 54–76; PULSE 49–71; RESP 17–20; TEMP 95.5–97.7; O2SAT 91–96
[2016-12-28] MEDS: ceFAZolin 2 GM PREMIX 50 ML IV SCH ×2 (03:08→09:10)
--- NOTE | 2016-12-28 07:27 | PD.ORT.PN ---
Subjective Subjective Remarks Patient is resting comfortably with no new complaints. He did have a Rene given last night. Objective Vitals Vital Signs Date Time Temp Pulse Resp B/P (MAP) Pulse Ox O2 Delivery O2 Flow Rate FiO2 12/28/16 04:00 95.6 62 20 138/76 (96) 93 12/28/16 00:00 95.8 49 20 135/73 (93) 93 12/27/16 20:00 95.8 58 20 141/84 (103) 94 12/27/16 19:33 97 21 12/27/16 16:00 97.0 57 19 159/79 (105) 97 12/27/16 15:35 18 12/27/16 15:00 97.1 58 20 155/75 (101) 94 Nasal Cannula 2 12/27/16 12:00 66 20 162/72 (102) 94 Nasal Cannula 2 12/27/16 11:45 65 20 151/72 (98) 94 Nasal Cannula 2 12/27/16 11:30 64 20 166/81 (109) 92 Nasal Cannula 2 12/27/16 11:15 64 20 143/63 (89) 92 Nasal Cannula 2 12/27/16 11:00 67 20 151/74 (99) 94 Nasal Cannula 3 12/27/16 10:53 97.0 61 20 120/66 (84) 94 Nasal Cannula 3 12/27/16 07:47 97.0 66 18 128/69 (88) 96 I/O 12/27/16 12/27/16 12/27/16 12/28/16 12/28/16 12/28/16 07:00 15:00 23:00 07:00 15:00 23:00 Intake Total 1000 ml 780 ml 370 ml Output Total 10 ml 300 ml 1600 ml Balance 990 ml 480 ml -1230 ml Intake Oral 480 ml 320 ml IV Total 300 ml 50 ml Other 1000 ml Output Urine Total 300 ml 1600 ml Estimated Blood Loss 10 ml Bladder Scan Volume Amount 495 ml # Voids 1 # Bowel Movements 0 0 Objective Remarks Right lower extremity: No pain with hip or knee range of motion. Soft dressings intact with wound VAC in place. Wound VAC has appropriate seal. He has intact sensation distally in all his toes Assessment & Plan Assessment and Plan Right hindfoot fusion with wound complications over medial incision. Irrigation debridement and wound VAC application POD 1 Maintain wound VAC Follow cultures Infectious disease consulted Vascular studies will be performed We'll plan on wound VAC change bedside on Monday Quique Grasyon Jr. Dec 28, 2016 07:27
[2016-12-28] MEDS ORDERED: CALCIUM CARBONATE PO SCH (09:00)
[2016-12-28] MEDS: DIGOXIN 0.25 MG TAB PO SCH (09:13)
[2016-12-28] MEDS: DILTIAZEM-CD 180 MG CAP ER PO SCH (09:13)
[2016-12-28] MEDS: ALLOPURINOL 300 MG TAB PO SCH (09:13)
[2016-12-28] MEDS: PANTOPRAZOLE SOD 20 MG DELAYED RELEASE TAB PO SCH (09:13)
[2016-12-28] MEDS: CALCIUM CARBONATE 1.25 GM (CA 500 MG) TAB PO SCH (09:13)
[2016-12-28] MEDS: METOPROLOL TARTRATE 100 MG TAB PO SCH ×2 (09:13→22:49)
[2016-12-28] MEDS: APIXABAN 5 MG TABLET PO SCH ×2 (09:14→22:49)
[2016-12-28] MEDS: BUDESONIDE-FORMOTEROL 160/4.5 MCG INHALER INH SCH ×2 (09:14→22:51)
[2016-12-28] MEDS: CHOLECALCIFEROL (VIT D3) 5000 UNIT CAP PO SCH (09:18)
[2016-12-28] MEDS: ORPHENADRINE CITRATE 100 MG SUSTAINED RELEASE TAB PO SCH ×2 (09:18→22:49)
[2016-12-28] MEDS: TIOTROPIUM BROMIDE 18 MCG INH INH SCH (09:25)
[2016-12-28] MEDS: VANCOMYCIN INJ 1,000 MG in SODIUM CHLOR 0.9% 250 ML INJ 250 ML IV SCH (09:28)
[2016-12-28] MEDS ORDERED: INFLUENZA VIRUS VACCINE (QUADRIVALENT) 0.5 ML SYR IM ONE (10:00)
[2016-12-28] MEDS: ACETAMINOPHEN/HYDROcodone 325 MG/10 MG TAB PO PRN ×2 (12:02→16:39)
--- NOTE | 2016-12-28 12:50 | RADRPT ---
EXAM DATE/TIME: 12/27/2016 00:00 [facility] COMPARISON: No previous studies available for comparison. INDICATIONS : I&D Ankle TECHNIQUE: Four-cuff ankle and brachial pressures were obtained. Pulse cuff waveform tracings of the ankles were recorded, and ankle-brachial indices were calculated. PRESSURES (mmHg): Brachial (arm): Right 98 Left IV SITE Ankle: Right 151 Left 143 KRISHNA: Right 1.54 Left 1.46 TBI: Right 0.90 Left 1.19 PULSED CUFF WAVEFORMS: Demonstrate normal amplitude bilaterally. CONCLUSION: KRISHNA 0.9 on the right. Brachial pressure not obtained on the left. Pulse wave tracing appears approp riate. Matthew Turner MD FACR on December 28, 2016 at 12:48 Board Certified Radiologist. This report was verified electronically.
--- NOTE | 2016-12-28 13:15 | MB ---
cc: RITU BURGER DATE OF CONSULTATION 12/28/2016 REASON FOR CONSULTATION Mr. Macias is a pleasant 71-year-old male who was recently admitted to undergo right ankle surgery with placement of hardware by Dr. Parsons. The patient developed urinary retention post procedure and had a 14-Palest[place] Rene catheter placed for 600 cc. The patient has a known history of BPH and underwent a TURP by Dr. Paige of [facility] in May. He does note nocturia two times at night and is currently on Flomax 0.4 mg two tablets p.o. q.h.s. He does have a weak stream at times and notes incomplete emptying. He denies having any history of prostate cancer or urinary tract infections or gross hematuria. PAST MEDICAL HISTORY His past medical history is noted for: 1. Hypertension 2. Gastroesophageal reflux disease 3. Nonhealing wounds 4. Hip problems 5. Knee problems 6. Obesity 7. Hypercholesterolemia ALLERGIES He has no allergies. PAST SURGICAL HISTORY Notable for: 1. Right ankle surgery 2. Bilateral knee replacements 3. Right hand surgery 4. Gastric bypass 5. Spine surgery MEDICATIONS For medications, please refer to the chart. 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 He is a former smoker, but does not drink. FAMILY HISTORY No family history of prostate cancer. REVIEW OF SYSTEMS He presently denies chest pain or shortness of breath. Denies fever or chills. He does note right foot pain after recent surgery. Denies bleeding disorders. He does note gait disturbances as he uses a walker. Denies abdominal pain, occasional constipation is noted. The remaining review of systems were reviewed and were negative. PHYSICAL EXAM PRESENT VITAL SIGNS: Temperature is 96.6, heart rate 54, straight 17, blood pressure 134/74, 95% on room air. GENERAL: He is well-developed, well-nourished 71-year-old male in no acute distress. HEENT: Normocephalic, atraumatic. Pupils equal round regular and reactive to light. Extraocular movements are intact. NECK: Supple. HEART: Regular rate and rhythm. LUNGS: Clear. ABDOMEN: Soft. Nontender and nondistended. : Normal phallus. Rene catheter is in place. Testes are descended. EXTREMITIES: Right lower extremity dressing noted over his right ankle. Good capillary refill is noted. NEUROLOGIC: Cranial nerves II-XII intact. PSYCH: Generalized mood. HEMATOLOGY: He notes no history of bleeding disorders. ASSESSMENT This is a 71-year-old male with a history of BPH with obstruction status post TURP back in May 2016. 1. Would maintain the Rene catheter for now. 2. Continue with Flomax 0.8 mg q.h.s. 3. Wean narcotics as appropriate. 4. Treat constipation if present. 5. Recommend void trial Monday morning. We will follow with you. Thank you for the consult. Ritu CORBETT /12:59 PM /1:12 PM
--- NOTE | 2016-12-28 14:34 | HHI.IDPN ---
Note Infectious Disease Note Patient has no complaints. Afebrile. Wound culture has pseudomonas and another gram neg brien. PAST MEDICAL HISTORY Right ankle surgery. Bilateral knee replacements. Right hand surgery. Gastric bypass Spinal surgery Hypercholesteremia Hypertension. Gastroesophageal reflux disease. ALLERGIES NO KNOWN DRUG ALLERGIES. ANTIBIOTICS: Vancomycin. SOCIAL HISTORY No tobacco use. The patient is a former smoker. No alcohol. No illicit drugs. OBJECTIVE: Vital Signs Date Time Temp Pulse Resp B/P (MAP) Pulse Ox O2 Delivery O2 Flow Rate FiO2 12/28/16 12:00 96.6 54 17 134/74 (94) 95 12/28/16 11:55 96 21 12/28/16 08:00 95.5 68 17 140/74 (96) 94 12/28/16 04:00 95.6 62 20 138/76 (96) 93 12/28/16 00:00 95.8 49 20 135/73 (93) 93 12/27/16 20:00 95.8 58 20 141/84 (103) 94 12/27/16 19:33 97 21 12/27/16 16:00 97.0 57 19 159/79 (105) 97 12/27/16 15:35 18 12/27/16 15:00 97.1 58 20 155/75 (101) 94 Nasal Cannula 2 Microbiology Date/Time Source Procedure Growth Status 12/27/16 10:21 Wound Ankle Fungal Smear - Final NO FUNGAL ELEMENTS SEEN. Resulted 12/27/16 10:21 Wound Ankle Fungal Culture Pending Resulted 12/27/16 10:21 Wound Ankle Acid Fast Stain - Final NO ACID FAST BACILLI SEEN Resulted 12/27/16 10:21 Wound Ankle Mycobacterial Culture Pending Resulted 12/27/16 10:21 Wound Ankle Gram Stain - Final Resulted 12/27/16 10:21 Wound Culture - Preliminary Pseudomonas Species Gram Negative Brien Resulted PHYSICAL EXAMINATION GENERAL: No acute distress. He is awake and alert and oriented. HEENT: The head is atraumatic. Extraocular movements grossly intact, pupils reactive to light. No icterus. Oropharynx moist mucosa. No lesions. NECK: Supple. No adenopathy. LUNGS: Clear breath sounds HEART: Regular S1-S2 without murmurs. EXTREMITIES: The right ankle has wound vac in place. SKIN: No rash. NEUROLOGIC: Nonfocal. IMPRESSION: R. ankle wound infection. RECOMMENDATIONS 1. Stop vancomycin 2. Start Cefepime. 3. monitor BMP. 4. Monitor clinical status. Due to the nature of the wound. The patient will require up to 6 weeks of IV antibiotics depending on the culture results. The cultures will be monitored for further determination on antibiotic choice. Neel Han MD Dec 28, 2016 14:34
[2016-12-28] MEDS: CEFEPIME INJ 1,000 MG in SODIUM CHLORIDE 0.9% INJ 100 ML IV SCH (16:27)
[2016-12-28] MEDS: TAMSULOSIN HCL 0.4 MG CAP PO SCH (22:48)
[2016-12-28] MEDS: PRAVASTATIN SOD 40 MG TAB PO SCH (22:48)
[2016-12-29] VITALS (7 sets, daily range): BP systolic 110–155; BP diastolic 60–79; PULSE 50–70; RESP 16–20; TEMP 95.9–98; O2SAT 91–97
[2016-12-29] MEDS: CEFEPIME INJ 1,000 MG in SODIUM CHLORIDE 0.9% INJ 100 ML IV SCH ×3 (01:04→16:23)
--- NOTE | 2016-12-29 06:46 | PD.ORT.PN ---
Subjective Subjective Remarks Patient is resting comfortably with no new complaints. Objective Vitals Vital Signs Date Time Temp Pulse Resp B/P (MAP) Pulse Ox O2 Delivery O2 Flow Rate FiO2 12/29/16 01:05 95.9 68 20 128/60 (82) 97 12/28/16 20:06 97.7 62 17 110/54 (72) 91 12/28/16 17:59 21 12/28/16 16:00 95.6 66 17 131/70 (90) 95 12/28/16 13:00 16 12/28/16 12:00 96.6 54 17 134/74 (94) 95 12/28/16 11:55 96 21 12/28/16 08:00 95.5 68 17 140/74 (96) 94 I/O 12/28/16 12/28/16 12/28/16 12/29/16 12/29/16 12/29/16 07:00 15:00 23:00 07:00 15:00 23:00 Intake Total 370 ml 350 ml 560 ml 760 ml Output Total 1600 ml 1400 ml 1800 ml Balance -1230 ml 350 ml -840 ml -1040 ml Intake Oral 320 ml 560 ml 760 ml IV Total 50 ml 350 ml Output Urine Total 1600 ml 1400 ml 1800 ml Bladder Scan Volume Amount 495 ml # Voids 1 # Bowel Movements 0 0 Objective Remarks Right lower extremity: No pain with hip or knee range of motion. Soft dressings intact with wound VAC in place. Wound VAC has appropriate seal. He has intact sensation distally in all his toes Assessment & Plan Assessment and Plan Right hindfoot fusion with wound complications over medial incision. Irrigation debridement and wound VAC application POD 2 Maintain wound VAC Follow cultures - initial cultures showed Pseudomonas Infectious disease consulted Vascular studies will be performed We'll plan on wound VAC change bedside on Monday - need to get a small wound VAC , Xeroform and Ioban from the operating room or SCD Quique Grayson Jr. Dec 29, 2016 06:46
[2016-12-29] MEDS: DIGOXIN 0.25 MG TAB PO SCH (08:12)
[2016-12-29] MEDS: APIXABAN 5 MG TABLET PO SCH ×2 (08:12→20:44)
[2016-12-29] MEDS: METOPROLOL TARTRATE 100 MG TAB PO SCH ×2 (08:12→20:45)
[2016-12-29] MEDS: DILTIAZEM-CD 180 MG CAP ER PO SCH (08:12)
[2016-12-29] MEDS: ALLOPURINOL 300 MG TAB PO SCH (08:12)
[2016-12-29] MEDS: CALCIUM CARBONATE 1.25 GM (CA 500 MG) TAB PO SCH (08:12)
[2016-12-29] MEDS: PANTOPRAZOLE SOD 20 MG DELAYED RELEASE TAB PO SCH (08:12)
[2016-12-29] MEDS: TIOTROPIUM BROMIDE 18 MCG INH INH SCH (08:13)
[2016-12-29] MEDS: BUDESONIDE-FORMOTEROL 160/4.5 MCG INHALER INH SCH ×2 (08:13→20:43)
[2016-12-29] MEDS: ORPHENADRINE CITRATE 100 MG SUSTAINED RELEASE TAB PO SCH ×2 (08:47→20:44)
[2016-12-29] MEDS: CHOLECALCIFEROL (VIT D3) 5000 UNIT CAP PO SCH (08:48)
[2016-12-29 09:41] LABS: BICARBONATE 24.5 MEQ/L (21.0-32.0); POTASSIUM 4.7 MEQ/L (3.5-5.1)
--- NOTE | 2016-12-29 10:46 | PD.VS.PN ---
Subjective Subjective/Hospital Course Pt in bed alert w/o complaints RIGHT foot w/ wound vac intact and post op surgical dressing C/D LE warm w/ motor intact Objective Vitals/I&O Date Time Temp Pulse Resp B/P (MAP) Pulse Ox O2 Delivery O2 Flow Rate FiO2 12/29/16 08:00 96.7 50 17 155/79 (104) 97 12/29/16 07:30 96.7 55 16 155/79 (104) 97 12/29/16 01:05 95.9 68 20 128/60 (82) 97 12/28/16 20:06 97.7 62 17 110/54 (72) 91 12/28/16 17:59 21 12/28/16 16:00 95.6 66 17 131/70 (90) 95 12/28/16 13:00 16 12/28/16 12:00 96.6 54 17 134/74 (94) 95 12/28/16 11:55 96 21 12/29/16 12/29/16 12/29/16 07:00 15:00 23:00 Intake Total 760 ml Output Total 1800 ml Balance -1040 ml Physical Exam GENERAL: A&OX3,NAD, GCS15 SKIN: Wound vac intact to R foot with post operative dressing LE warm with motor intact R foot with phasic R DP MUSCULOSKELETAL: No cyanosis, or edema. Laboratory Laboratory Tests Test 12/29/16 08:24 Blood Urea Nitrogen 21 Creatinine 0.81 Random Glucose 89 Calcium Level 8.9 Sodium Level 135 Potassium Level 4.7 Chloride Level 104 Carbon Dioxide Level 24.5 Anion Gap 7 Estimat Glomerular Filtration Rate 94 Date/Time Source Procedure Growth Status 12/27/16 10:21 Wound Ankle Fungal Smear - Final NO FUNGAL ELEMENTS SEEN. Resulted 12/27/16 10:21 Wound Ankle Fungal Culture Pending Resulted Assessment and Plan Assessment: (1) non healing wound right foot Plan 71/M patient with non healing R foot wound Pt w/ strong Doppler signals (RLE) KRISHNA reviewed, pt with sufficient LE perfusion Plan Discussed and reviewed KRISHNA study w/ pt Pt with adequate LE perfusion No surgical intervention at this time Pt clear for D/C from a vascular stand point Leatha CHONG [facility] [phone] Discharge Planning Clear for D/C from a vascular stand point Leatha Noyola Dec 29, 2016 10:46
[2016-12-29] MEDS ORDERED: MAGNESIUM HYDROXIDE SUSP 30 ML CUP PO PRN (19:45)
[2016-12-29] MEDS: TAMSULOSIN HCL 0.4 MG CAP PO SCH (20:44)
[2016-12-29] MEDS: PRAVASTATIN SOD 40 MG TAB PO SCH (20:45)
[2016-12-29] MEDS: ACETAMINOPHEN/HYDROcodone 325 MG/10 MG TAB PO PRN (20:51)
[2016-12-30] MEDS: CEFEPIME INJ 1,000 MG in SODIUM CHLORIDE 0.9% INJ 100 ML IV SCH ×2 (00:16→08:00)
[2016-12-30] MEDS: ACETAMINOPHEN/HYDROcodone 325 MG/10 MG TAB PO PRN ×3 (00:22→20:18)
[2016-12-30 00:29] VITALS: BP 100/63; PULSE 60; RESP 18; TEMP 96.4; O2SAT 96
--- NOTE | 2016-12-30 07:25 | PD.ORT.PN ---
Subjective Subjective Remarks Patient is resting comfortably with no new complaints. Objective Vitals Vital Signs Date Time Temp Pulse Resp B/P (MAP) Pulse Ox O2 Delivery O2 Flow Rate FiO2 12/30/16 00:29 96.4 60 18 100/63 (75) 96 12/29/16 20:22 97.1 68 18 132/62 (85) 96 12/29/16 20:17 21 12/29/16 16:00 96.3 54 17 110/74 (86) 91 12/29/16 12:00 98.0 70 20 110/67 (81) 12/29/16 09:27 93 21 12/29/16 08:00 96.7 50 17 155/79 (104) 97 12/29/16 07:30 96.7 55 16 155/79 (104) 97 I/O 12/29/16 12/29/16 12/29/16 12/30/16 12/30/16 12/30/16 07:00 15:00 23:00 07:00 15:00 23:00 Intake Total 760 ml 100 ml 830 ml 580 ml Output Total 1800 ml 1550 ml 1250 ml Balance -1040 ml 100 ml -720 ml -670 ml Intake Oral 760 ml 830 ml 480 ml IV Total 100 ml 100 ml Output Urine Total 1800 ml 1500 ml 1250 ml Drainage Total 50 ml 0 ml # Bowel Movements 2 1 Result Diagram: 12/29/16 0824 Other Results Microbiology Date/Time Source Procedure Growth Status 12/27/16 10:21 Wound Ankle Fungal Smear - Final NO FUNGAL ELEMENTS SEEN. Resulted 12/27/16 10:21 Wound Ankle Fungal Culture Pending Resulted 12/27/16 10:21 Wound Ankle Acid Fast Stain - Final NO ACID FAST BACILLI SEEN Resulted 12/27/16 10:21 Wound Ankle Mycobacterial Culture Pending Resulted 12/27/16 10:21 Wound Ankle Gram Stain - Final Complete 12/27/16 10:21 Wound Culture - Final Pseudomonas Aeruginosa Enterobacter Cloacae Complete Objective Remarks Right lower extremity: No pain with hip or knee range of motion. Soft dressings intact with wound VAC in place. Wound VAC taken down and wound with good granulation tissue and bleeding. No further dehiscence or eschar new wound VAC applied. Wound VAC has appropriate seal. He has intact sensation distally in all his toes Assessment & Plan Assessment and Plan Right hindfoot fusion with wound complications over medial incision. Irrigation debridement and wound VAC application POD 3 Maintain wound VAC 100 mmHg DPC 3:1 Follow cultures - initial cultures showed Pseudomonas Infectious disease for antibiotic management Vascular studies were performed - no further intervention at this time We'll plan on wound VAC change bedside on Monday or Monday- need to get a small wound VAC, Xeroform and Ioban from the operating room or SCD Quique Grayson Jr. Dec 30, 2016 07:25
[2016-12-30 08:00] VITALS: BP 184/81; PULSE 56; RESP 18; TEMP 95.8; O2SAT 94
[2016-12-30] MEDS: DOCUSATE SODIUM 100 MG CAP PO SCH (08:01)
[2016-12-30] MEDS: PANTOPRAZOLE SOD 20 MG DELAYED RELEASE TAB PO SCH (08:01)
[2016-12-30] MEDS: DIGOXIN 0.25 MG TAB PO SCH (08:01)
[2016-12-30] MEDS: METOPROLOL TARTRATE 100 MG TAB PO SCH ×2 (08:01→23:08)
[2016-12-30] MEDS: ORPHENADRINE CITRATE 100 MG SUSTAINED RELEASE TAB PO SCH ×2 (08:01→20:17)
[2016-12-30] MEDS: BUDESONIDE-FORMOTEROL 160/4.5 MCG INHALER INH SCH ×2 (08:01→20:15)
[2016-12-30] MEDS: CHOLECALCIFEROL (VIT D3) 5000 UNIT CAP PO SCH (08:01)
[2016-12-30] MEDS: ALLOPURINOL 300 MG TAB PO SCH (08:01)
[2016-12-30] MEDS: DILTIAZEM-CD 180 MG CAP ER PO SCH (08:01)
[2016-12-30] MEDS: CALCIUM CARBONATE 1.25 GM (CA 500 MG) TAB PO SCH (08:01)
[2016-12-30] MEDS: APIXABAN 5 MG TABLET PO SCH ×2 (08:01→20:16)
[2016-12-30] MEDS: TIOTROPIUM BROMIDE 18 MCG INH INH SCH (08:01)
[2016-12-30 09:42] VITALS: O2SAT 93
--- NOTE | 2016-12-30 10:32 | HHI.PR ---
Subjective Patient symptoms today Pt resting comfortably, adam out. No void as yet. Objective Vital Signs Vital Signs Date Time Temp Pulse Resp B/P (MAP) Pulse Ox O2 Delivery O2 Flow Rate FiO2 12/30/16 08:00 95.8 56 18 184/81 (115) 94 12/30/16 00:29 96.4 60 18 100/63 (75) 96 12/29/16 20:22 97.1 68 18 132/62 (85) 96 12/29/16 20:17 21 12/29/16 16:00 96.3 54 17 110/74 (86) 91 12/29/16 12:00 98.0 70 20 110/67 (81) Intake & Output 12/30/16 12/30/16 07:00 19:00 Intake Total 580 ml Output Total 1250 ml Balance -670 ml Intake Oral 480 ml IV Total 100 ml Output Urine Total 1250 ml Drainage Total 0 ml # Bowel Movements 1 Result Diagram: 12/29/16823 Objective Remarks Abd:soft,nt,nd Medications and IVs Current Medications Medications (Trade) Dose Ordered Sig/Conchis Route Start Time Stop Time Status Last Admin (Zyloprim) 300 mg DAILY PO 12/28/16 09:00 12/30/16 08:01 (Eliquis) 5 mg BID PO 12/27/16 21:00 12/30/16 08:01 (Symbicort 160-4.5 Inh) 2 puff Q12HR INH 12/27/16 21:00 12/30/16 08:01 (Vitamin D3) 5,000 units DAILY PO 12/28/16 09:00 12/30/16 08:01 (Lanoxin) 0.25 mg DAILY PO 12/28/16 09:00 12/30/16 08:01 (Cardizem Cd) 180 mg DAILY PO 12/28/16 09:00 12/30/16 08:01 (Lopressor) 100 mg BID PO 12/27/16 21:00 12/30/16 08:01 (Norflex Cr) 100 mg Q12HR PO 12/27/16 21:00 12/30/16 08:01 (Flomax) 0.8 mg HS PO 12/27/16 21:00 12/29/16 20:44 (Spiriva Inh) 18 mcg DAILY INH 12/28/16 09:00 12/30/16 08:01 (Protonix) 20 mg DAILY PO 12/28/16 09:00 12/30/16 08:01 (Pravachol) 40 mg HS PO 12/27/16 21:00 12/29/16 20:45 (Zofran Inj) 4 mg Q4H PRN IVP 12/27/16 10:45 (Alton 10-325 Mg) 1 tab Q3H PRN PO 12/27/16 10:45 12/30/16 06:51 (Morphine Inj) 3 mg Q3H PRN IV PUSH 12/27/16 10:45 (Oscal) 1,000 mg DAILY PO 12/28/16 09:00 12/30/16 08:01 Cefepime HCl 1000 mg/Sodium Chloride 100 ml @ 200 mls/hr Q8H IV 12/28/16 16:00 12/30/16 08:00 (Colace) 100 mg DAILY PO 12/30/16 09:00 12/30/16 08:01 (Milk Of Magnesia Liq) 30 ml Q12H PRN PO 12/29/16 19:45 Assessment and Plan Assessment and Plan 71 y.o male with h/o BPH with AUR Void trial today Kody Canales DO Dec 30, 2016 10:32
[2016-12-30 12:00] VITALS: BP 124/69; PULSE 48; RESP 16; TEMP 97.4; O2SAT 93
--- NOTE | 2016-12-30 12:36 | HHI.IDPN ---
Note Infectious Disease Note Patient has no complaints. Afebrile. PAST MEDICAL HISTORY Right ankle surgery. Bilateral knee replacements. Right hand surgery. Gastric bypass Spinal surgery Hypercholesteremia Hypertension. Gastroesophageal reflux disease. ALLERGIES NO KNOWN DRUG ALLERGIES. ANTIBIOTICS: Cefepime SOCIAL HISTORY No tobacco use. The patient is a former smoker. No alcohol. No illicit drugs. OBJECTIVE: Vital Signs Date Time Temp Pulse Resp B/P (MAP) Pulse Ox O2 Delivery O2 Flow Rate FiO2 12/30/16 09:42 93 Nasal Cannula 3.00 12/30/16 08:00 95.8 56 18 184/81 (115) 94 12/30/16 00:29 96.4 60 18 100/63 (75) 96 12/29/16 20:22 97.1 68 18 132/62 (85) 96 12/29/16 20:17 21 12/29/16 16:00 96.3 54 17 110/74 (86) 91 Laboratory Tests Test 12/29/16 08:24 Blood Urea Nitrogen 21 MG/DL Creatinine 0.81 MG/DL Random Glucose 89 MG/DL Calcium Level 8.9 MG/DL Sodium Level 135 MEQ/L Potassium Level 4.7 MEQ/L Chloride Level 104 MEQ/L Carbon Dioxide Level 24.5 MEQ/L Anion Gap 7 MEQ/L Estimat Glomerular Filtration Rate 94 ML/MIN Microbiology Date/Time Source Procedure Growth Status 12/27/16 10:21 Wound Ankle Fungal Smear - Final NO FUNGAL ELEMENTS SEEN. Resulted 12/27/16 10:21 Wound Ankle Fungal Culture Pending Resulted 12/27/16 10:21 Wound Ankle Acid Fast Stain - Final NO ACID FAST BACILLI SEEN Resulted 12/27/16 10:21 Wound Ankle Mycobacterial Culture Pending Resulted 12/27/16 10:21 Wound Ankle Gram Stain - Final Resulted 12/27/16 10:21 Wound Culture - Preliminary Pseudomonas Species Gram Negative Brien Resulted PHYSICAL EXAMINATION GENERAL: No acute distress. He is awake and alert and oriented. HEENT: The head is atraumatic. Extraocular movements grossly intact, pupils reactive to light. No icterus. Oropharynx moist mucosa. No lesions. NECK: Supple. No adenopathy. LUNGS: Clear breath sounds HEART: Regular S1-S2 without murmurs. EXTREMITIES: The right ankle has wound vac in place. SKIN: No rash. NEUROLOGIC: Nonfocal. IMPRESSION: R. ankle wound infection. Enterobacter/Pseudomonas intermediately sensitive to Cefepime. Patient had removal of ankle hardware. has hardware at r. tibia. RECOMMENDATIONS 1. Stop Cefepime. 2. start Zosyn IV. 3. Plan on IV Zosyn x 6 weeks. 4. Will need PIC on discharge. Neel Han MD Dec 30, 2016 12:36
[2016-12-30] MEDS: PIPERACIL-TAZO 4.5 GM PREMIX 100 ML IV SCH ×2 (15:39→20:15)
[2016-12-30 16:00] VITALS: BP 118/61; PULSE 58; RESP 16; TEMP 96.2; O2SAT 97
[2016-12-30] MEDS: TAMSULOSIN HCL 0.4 MG CAP PO SCH (20:16)
[2016-12-30] MEDS: PRAVASTATIN SOD 40 MG TAB PO SCH (20:17)
[2016-12-30 20:30] VITALS: BP 125/68; PULSE 60; RESP 18; TEMP 95.6; O2SAT 97
[2016-12-31 00:18] VITALS: BP 120/63; PULSE 61; RESP 18; TEMP 96.9; O2SAT 95
[2016-12-31] MEDS: PIPERACIL-TAZO 4.5 GM PREMIX 100 ML IV SCH ×5 (03:07→18:41)
[2016-12-31] MEDS: ACETAMINOPHEN/HYDROcodone 325 MG/10 MG TAB PO PRN ×2 (06:18→20:18)
[2016-12-31 08:00] VITALS: BP 124/63; PULSE 60; RESP 18; TEMP 96.9; O2SAT 93
[2016-12-31] MEDS: ORPHENADRINE CITRATE 100 MG SUSTAINED RELEASE TAB PO SCH ×2 (10:28→20:18)
[2016-12-31] MEDS: PANTOPRAZOLE SOD 20 MG DELAYED RELEASE TAB PO SCH (10:28)
[2016-12-31] MEDS: DOCUSATE SODIUM 100 MG CAP PO SCH (10:28)
[2016-12-31] MEDS: METOPROLOL TARTRATE 100 MG TAB PO SCH ×2 (10:28→20:18)
[2016-12-31] MEDS: DILTIAZEM-CD 180 MG CAP ER PO SCH (10:28)
[2016-12-31] MEDS: DIGOXIN 0.25 MG TAB PO SCH (10:28)
[2016-12-31] MEDS: CHOLECALCIFEROL (VIT D3) 5000 UNIT CAP PO SCH (10:28)
[2016-12-31] MEDS: ALLOPURINOL 300 MG TAB PO SCH (10:28)
[2016-12-31] MEDS: CALCIUM CARBONATE 1.25 GM (CA 500 MG) TAB PO SCH (10:28)
[2016-12-31] MEDS: APIXABAN 5 MG TABLET PO SCH ×2 (10:29→20:18)
[2016-12-31] MEDS: TIOTROPIUM BROMIDE 18 MCG INH INH SCH (10:34)
[2016-12-31] MEDS: BUDESONIDE-FORMOTEROL 160/4.5 MCG INHALER INH SCH ×2 (10:35→20:19)
[2016-12-31 12:00] VITALS: BP 121/87; PULSE 75; RESP 20; TEMP 95.8; O2SAT 93
--- NOTE | 2016-12-31 14:05 | PD.ORT.PN ---
Subjective Subjective Remarks Patient comfortable. Pain controlled. No complaints. Objective Vitals Vital Signs Date Time Temp Pulse Resp B/P (MAP) Pulse Ox O2 Delivery O2 Flow Rate FiO2 12/31/16 12:00 95.8 75 20 121/87 (98) 93 12/31/16 08:00 96.9 60 18 124/63 (83) 93 12/31/16 00:18 96.9 61 18 120/63 (82) 95 12/30/16 20:30 95.6 60 18 125/68 (87) 97 12/30/16 16:00 96.2 58 16 118/61 (80) 97 I/O 12/30/16 12/30/16 12/30/16 12/31/16 12/31/16 12/31/16 07:00 15:00 23:00 07:00 15:00 23:00 Intake Total 580 ml 750 ml 780 ml Output Total 1250 ml 1500 ml Balance -670 ml 750 ml -720 ml Intake Oral 480 ml 650 ml 680 ml IV Total 100 ml 100 ml 100 ml Output Urine Total 1250 ml 1500 ml Drainage Total 0 ml 0 ml # Voids 3 # Bowel Movements 1 0 Result Diagram: 12/29/16823 Objective Remarks Right lower extremity: wound vac intact dressing in place C/D/I distally motor, neuro and sensory intact Assessment & Plan Assessment and Plan Right hindfoot fusion with wound complications over medial incision. Irrigation debridement and wound VAC application POD 4 Maintain wound VAC 100 mmHg DPC 3:1 Final cultures - showed Pseudomonas aeruginosa Infectious disease for antibiotic management Plan on wound VAC change bedside on Monday or Monday- need to get a small wound VAC, Xeroform and Ioban from the operating room or SCD Monitor Kem Bell Dec 31, 2016 14:05
[2016-12-31 16:00] VITALS: BP 110/59; PULSE 46; RESP 18; TEMP 96.2; O2SAT 93
[2016-12-31 17:55] VITALS: O2SAT 93
[2016-12-31 20:00] VITALS: BP 120/79; PULSE 61; RESP 22; TEMP 96.1; O2SAT 94
[2016-12-31] MEDS: PRAVASTATIN SOD 40 MG TAB PO SCH (20:17)
[2016-12-31] MEDS: TAMSULOSIN HCL 0.4 MG CAP PO SCH (20:17)
[2017-01-01] VITALS: BP 114/55; PULSE 56; RESP 20; TEMP 96.1; O2SAT 98
[2017-01-01] MEDS: PIPERACIL-TAZO 4.5 GM PREMIX 100 ML IV SCH ×4 (00:36→16:28)
[2017-01-01] MEDS: ACETAMINOPHEN/HYDROcodone 325 MG/10 MG TAB PO PRN ×2 (00:50→19:52)
[2017-01-01 08:00] VITALS: BP 133/74; PULSE 60; RESP 18; TEMP 95.9; O2SAT 94
--- NOTE | 2017-01-01 10:16 | PD.ORT.PN ---
Subjective Subjective Remarks Patient comfortable. Pain controlled. OOB sitting in wheelchair. Objective Vitals Vital Signs Date Time Temp Pulse Resp B/P (MAP) Pulse Ox O2 Delivery O2 Flow Rate FiO2 01/01/17 08:00 95.9 60 18 133/74 (93) 94 01/01/17 01:50 20 01/01/17 00:00 96.1 56 20 114/55 (74) 98 12/31/16 20:00 96.1 61 22 120/79 (93) 94 12/31/16 17:55 93 Nasal Cannula 3.00 12/31/16 16:00 96.2 46 18 110/59 (76) 93 12/31/16 14:36 Nasal Cannula 3.00 12/31/16 12:00 95.8 75 20 121/87 (98) 93 I/O 12/31/16 12/31/16 12/31/16 01/01/17 01/01/17 01/01/17 07:00 15:00 23:00 07:00 15:00 23:00 Intake Total 780 ml 1300 ml 680 ml Output Total 1500 ml 800 ml 600 ml Balance -720 ml 500 ml 80 ml Intake Oral 680 ml 1100 ml 480 ml IV Total 100 ml 200 ml 200 ml Output Urine Total 1500 ml 800 ml 600 ml Drainage Total 0 ml 0 ml # Bowel Movements 1 0 Result Diagram: 12/29/16823 Objective Remarks Right lower extremity: wound vac intact dressing in place C/D/I distally motor, neuro and sensory intact Assessment & Plan Assessment and Plan Right hindfoot fusion with wound complications over medial incision. Irrigation debridement and wound VAC application POD 5 Maintain wound VAC 100 mmHg DPC 3:1 Final cultures - showed Pseudomonas aeruginosa Infectious disease for antibiotic management Plan on wound VAC change bedside on Monday or Monday- need to get a small wound VAC, Xeroform and Ioban from the operating room or SCD Monitor Kem Bell Jan 01, 2017 10:16
[2017-01-01] MEDS: METOPROLOL TARTRATE 100 MG TAB PO SCH ×2 (10:21→19:52)
[2017-01-01] MEDS: DOCUSATE SODIUM 100 MG CAP PO SCH (10:21)
[2017-01-01] MEDS: CHOLECALCIFEROL (VIT D3) 5000 UNIT CAP PO SCH (10:22)
[2017-01-01] MEDS: TIOTROPIUM BROMIDE 18 MCG INH INH SCH (10:22)
[2017-01-01] MEDS: PANTOPRAZOLE SOD 20 MG DELAYED RELEASE TAB PO SCH (10:22)
[2017-01-01] MEDS: DIGOXIN 0.25 MG TAB PO SCH (10:22)
[2017-01-01] MEDS: DILTIAZEM-CD 180 MG CAP ER PO SCH (10:22)
[2017-01-01] MEDS: BUDESONIDE-FORMOTEROL 160/4.5 MCG INHALER INH SCH ×2 (10:22→19:53)
[2017-01-01] MEDS: ALLOPURINOL 300 MG TAB PO SCH (10:23)
[2017-01-01] MEDS: APIXABAN 5 MG TABLET PO SCH ×2 (10:23→19:51)
[2017-01-01] MEDS: ORPHENADRINE CITRATE 100 MG SUSTAINED RELEASE TAB PO SCH ×2 (10:24→19:52)
[2017-01-01] MEDS: CALCIUM CARBONATE 1.25 GM (CA 500 MG) TAB PO SCH (10:24)
[2017-01-01 12:00] VITALS: BP 116/64; PULSE 53; RESP 18; TEMP 95.2; O2SAT 98
[2017-01-01 16:00] VITALS: BP 132/89; PULSE 54; RESP 18; TEMP 95.7; O2SAT 94
[2017-01-01 19:01] VITALS: O2SAT 94
[2017-01-01] MEDS: TAMSULOSIN HCL 0.4 MG CAP PO SCH (19:51)
[2017-01-01] MEDS: PRAVASTATIN SOD 40 MG TAB PO SCH (19:52)
[2017-01-01 20:00] VITALS: BP 122/61; PULSE 66; RESP 20; TEMP 96.5; O2SAT 95
[2017-01-02] VITALS: BP 134/66; PULSE 51; RESP 20; TEMP 96.7; O2SAT 95
[2017-01-02] MEDS: PIPERACIL-TAZO 4.5 GM PREMIX 100 ML IV SCH ×3 (00:05→13:35)
[2017-01-02] MEDS: ACETAMINOPHEN/HYDROcodone 325 MG/10 MG TAB PO PRN (01:31)
[2017-01-02 04:00] VITALS: BP 116/71; PULSE 50; RESP 20; TEMP 96.7; O2SAT 95
[2017-01-02 08:00] VITALS: BP 143/98; PULSE 74; RESP 20; TEMP 96.9; O2SAT 95
--- NOTE | 2017-01-02 08:29 | PD.ORT.PN ---
Subjective Subjective Remarks s/p I&d right ankle with wound vac application doing well pain controlled. out of bed with wheelchair Objective Vitals Vital Signs Date Time Temp Pulse Resp B/P (MAP) Pulse Ox O2 Delivery O2 Flow Rate FiO2 01/02/17 08:00 96.9 74 20 143/98 (113) 95 01/02/17 04:00 96.7 50 20 116/71 (86) 95 01/02/17 02:31 18 01/02/17 00:00 96.7 51 20 134/66 (88) 95 01/01/17 20:00 96.5 66 20 122/61 (81) 95 01/01/17 19:01 94 Nasal Cannula 3.00 01/01/17 16:00 95.7 54 18 132/89 (103) 94 01/01/17 12:00 95.2 53 18 116/64 (81) 98 I/O 01/01/17 01/01/17 01/01/17 01/02/17 01/02/17 01/02/17 07:00 15:00 23:00 07:00 15:00 23:00 Intake Total 680 ml 680 ml 200 ml 120 ml Output Total 600 ml 950 ml Balance 80 ml 680 ml -750 ml 120 ml Intake Oral 480 ml 480 ml 120 ml IV Total 200 ml 200 ml 200 ml Output Urine Total 600 ml 950 ml Drainage Total 0 ml 0 ml # Voids 3 # Bowel Movements 0 1 Result Diagram: 12/29/16 08 Objective Remarks Right lower extremity: wound vac intact dressing in place C/D/I distally motor, neuro and sensory intact vac removed and wound visualized. no drainage. +granulation tissue present. Assessment & Plan Assessment and Plan 1) Right hindfoot fusion with wound complications over medial incision. Irrigation debridement and wound VAC application POD 6 Maintain wound VAC 100 mmHg DPC 3:1 Final cultures - showed Pseudomonas aeruginosa Infectious disease for antibiotic management - needs PICC line placement prior to DC wound vac changed at bedside paperwork completed for home vac. vac to be changed MWF at home plan for follow up in office 2 weeks DC home today with [facility] Trevor Douglass Jan 02, 2017 08:29
--- NOTE | 2017-01-02 08:30 | HHI.FF ---
Face to Face Verification Diagnosis: (1) non healing wound right foot (2) Leg fracture, right Physical Therapy Wheelchair training Right LE Weight Bearing: Non WB Nursing Nursing: Dressing changes (wound vac dressing changes MWF.) I have seen patient Jaya Macias on 01/02/17. My clinical findings support the need for the requested home health care services because: Ltd mobility - disease progression Injectable med education/admin (IV Antibiotic administration per Infectious disease ) I certify that my clinical findings support that this patient is homebound because: Post-op weakness Trevor Douglass Jan 02, 2017 08:30
[2017-01-02] MEDS ORDERED: HYDR-3583 PO (08:32)
--- NOTE | 2017-01-02 08:37 | HHI.DS ---
Discharge Summary Admission Date Dec 28, 2016 at 08:48 Discharge Date: Jan 02, 2017 Admitting Diagnosis Wound complication of right ankle Diagnosis: (1) non healing wound right foot Diagnosis: Principal Procedures Irrigation and debridement with application of wound VAC right leg CBC/BMP: 12/29/16 0824 PE at Discharge Right lower extremity: wound vac intact dressing in place C/D/I distally motor, neuro and sensory intact vac removed and wound visualized. no drainage. +granulation tissue present. Hospital Course Patient admitted from outpatient basis for irrigation and debridement of right medial ankle wound. Patient had undergone a hindfoot fusion approximately 3 weeks ago. The surgical incision on the medial ankle has since dehisced and shown evidence of infection. He is brought to the operating room for irrigation debridement as well as cultures. Cultures were resulted as a Pseudomonas gram-negative jordi. Infectious diseases consult for antibiotic management. VAC application was done. The VAC dressing was changed at bedside approximately 6. The wound was clean and there is good evidence of granulation tissue. The patient was out of bed and ambulating with a wheelchair on postoperative day 1. His pain is well-controlled hemodynamically stable. The patient will have a PICC line inserted and fit for discharge home. He will undergo 6 weeks of IV Zosyn. This will be managed by infectious disease team. He'll follow Dr. Parsons in the office in approximately 1-2 weeks. He'll remain nonweightbearing on the right leg and home health care will be arranged for VAC dressing changes 2-3 times per week Pt Condition on Discharge: Good Discharge Disposition: Disch w/ Home Health Serv Discharge Instructions Diet Instructions: As Tolerated, No Restrictions Activities You Can Perform: Non Weight Bearing Follow up Referrals: Orthopedics - 2 Weeks @ [facility] with Jose D Parsons MD Continued Medications: Allopurinol (Allopurinol) 300 Mg Tab 300 MG PO DAILY for Gout, #30 TAB 0 Refills Apixaban (Eliquis) 5 Mg Tab 5 MG PO BID for Blood Clot Prevention, #60 TAB 0 Refills Budesonide-Formoterol Inh (Symbicort Inh) 160-4.5 Mcg/Act Aero 2 PUFF INH Q12HR, #1 INHALER 0 Refills Calcium Carbonate (Calcium Oyster Shell) 1,250 Mg Tab 2500 MG PO DAILY for Calcium Supplement, TAB 0 Refills 1,250 mg calcium carbonate (500 mg elemental calcium) Cholecalciferol (Vitamin D3) 5,000 Unit Cap 5000 UNITS PO WEEKLY for Nutritional Supplement, #1 BOTTLE 0 Refills Digoxin (Digoxin) 0.25 Mg Tab 0.25 MG PO DAILY for Regulate Heart Beat, #30 TAB 0 Refills Diltiazem (Diltiazem) 90 Mg Tab 180 MG PO DAILY for Angina, #120 TAB 0 Refills Ferrous Sulfate (Ferrous Sulfate) 325 Mg (65 Mg Iron) Tablet 325 MG PO DAILY for Nutritional Supplement, #30 TAB 0 Refills Hydrocodone-Acetaminophen (Hydrocodone-Acetaminophen) 10-325 mg Tab 1 TAB PO Q4H PRN for PAIN, #40 TAB 0 Refills (This prescription has been renewed ) Metoprolol Tartrate (Metoprolol Tartrate) 100 Mg Tab 100 MG PO BID, #60 TAB 0 Refills Omeprazole (Omeprazole) 20 Mg Tab 20 MG PO DAILY, #30 TAB 0 Refills Orphenadrine ER 12 HR (Orphenadrine ER 12 HR) 100 Mg Tab 100 MG PO Q12HR for Muscle Spasm, #60 TAB 0 Refills Simvastatin (Simvastatin) 20 Mg Tab 20 MG PO HS for Cholesterol Management, #30 TAB 0 Refills Tamsulosin (Tamsulosin) 0.4 Mg Cap 0.8 MG PO HS for Manage Prostate Problems, #60 CAP 0 Refills Tiotropium Inh (Spiriva Handihaler) 18 Mcg Cap 18 MCG INH DAILY for COPD, #30 CAP 0 Refills 1 capsule = 18 mcg Trevor Douglass Jan 02, 2017 08:37
[2017-01-02] MEDS: DILTIAZEM-CD 180 MG CAP ER PO SCH (09:31)
[2017-01-02] MEDS: APIXABAN 5 MG TABLET PO SCH (09:31)
[2017-01-02] MEDS: DIGOXIN 0.25 MG TAB PO SCH (09:31)
[2017-01-02] MEDS: METOPROLOL TARTRATE 100 MG TAB PO SCH (09:31)
[2017-01-02] MEDS: DOCUSATE SODIUM 100 MG CAP PO SCH (09:31)
[2017-01-02] MEDS: ALLOPURINOL 300 MG TAB PO SCH (09:31)
[2017-01-02] MEDS: PANTOPRAZOLE SOD 20 MG DELAYED RELEASE TAB PO SCH (09:31)
[2017-01-02] MEDS: CALCIUM CARBONATE 1.25 GM (CA 500 MG) TAB PO SCH (09:32)
[2017-01-02] MEDS: CHOLECALCIFEROL (VIT D3) 5000 UNIT CAP PO SCH (09:32)
[2017-01-02] MEDS: ORPHENADRINE CITRATE 100 MG SUSTAINED RELEASE TAB PO SCH (09:32)
[2017-01-02] MEDS: TIOTROPIUM BROMIDE 18 MCG INH INH SCH (09:38)
[2017-01-02] MEDS: BUDESONIDE-FORMOTEROL 160/4.5 MCG INHALER INH SCH (09:38)
[2017-01-02 10:34] VITALS: O2SAT 95
--- NOTE | 2017-01-02 10:40 | HHI.FF ---
Infusion Therapy Location of Infusion Therapy: Home Health Care IV Infusion Order Patient Information Patient Weight 105.6 kg Diagnosis: Diagnosis Wound infection foot. pseudomonas/enterobacter. Patient with hardware. Coded Allergies: No Known Allergies (Unverified Allergy, Unknown, 12/27/16) Administer Medication Piperacillin/Tazobactam 4.5 grams IV q 6 hours Stop Treatment: Feb 07, 2017 Additional Information Venous access: PICC Line Additional Instructions [x] Peripheral flush and dressing changes per protocol [x] Implanted port and central toll lineman: * Implanted port: 10 ml Normal Saline followed by 5 ml Heparin 100 units/ml Heparin flush after each use and monthly to maintain. [] May leave port accessed during therapy. [] May leave peripheral site accessed for duration of therapy. [x] If patient has SOB or respiratory distress, check oxygen saturation. If less than 90% or clinical signs of respiratory distress, administer oxygen at 2 L/min. via nasal cannula and notify physician. [x] Anaphylaxis/Reaction orders: * Stop infusion. * Keep IV line open with saline flush. * Notify physician. * Monitor vital signs every 15 minutes until symptoms resolve. * Check Oxygen saturation; Oxygen at 2 L/min. via nasal cannula if less than 90% or clinical signs of respiratory distress. * Administer diphenhydramine (Benadryl) 25 mg IV STAT, (unless patient has received as pre-med). May repeat once, if necessary. * Solu-Cortef 250 mg IVP over 30-60 seconds, use 100 mg vials for each dissolution. * Epinephrine (1mg/1 ml) 0.3 mg subcutaneously or IVP now with any signs of respiratory distress. * Check with physician for new additional pre-med orders if patient is re- challenged or re-treated. [x] May remove PICC line when treatment complete, after confirming with Physician. [x] If the patient is admitted to the hospital, the ED, or transferred via [facility] , complete transfer form including medication reconciliation order sheet. Laboratory Tests Weekly Labs: [facility] Additional Information Follow up with ID doctor outpatient in 1 week. Neel Han MD Jan 02, 2017 10:40
--- NOTE | 2017-01-02 10:48 | HHI.IDPN ---
Note Infectious Disease Note Patient feels okay. Afebrile. Denies pain in ankle. No complaints. PAST MEDICAL HISTORY Right ankle surgery. Bilateral knee replacements. Right hand surgery. Gastric bypass Spinal surgery Hypercholesteremia Hypertension. Gastroesophageal reflux disease. ALLERGIES NO KNOWN DRUG ALLERGIES. ANTIBIOTICS: Pip/Tazobactam. SOCIAL HISTORY No tobacco use. The patient is a former smoker. No alcohol. No illicit drugs. OBJECTIVE: Vital Signs Date Time Temp Pulse Resp B/P (MAP) Pulse Ox O2 Delivery O2 Flow Rate FiO2 01/02/17 10:34 95 Nasal Cannula 3.00 01/02/17 08:00 96.9 74 20 143/98 (113) 95 01/02/17 04:00 96.7 50 20 116/71 (86) 95 01/02/17 02:31 18 01/02/17 00:00 96.7 51 20 134/66 (88) 95 01/01/17 20:00 96.5 66 20 122/61 (81) 95 01/01/17 19:01 94 Nasal Cannula 3.00 01/01/17 16:00 95.7 54 18 132/89 (103) 94 01/01/17 12:00 95.2 53 18 116/64 (81) 98 PHYSICAL EXAMINATION GENERAL: No acute distress. HEENT: The head is atraumatic. No icterus. Oropharynx moist mucosa. No lesions. NECK: Supple. No adenopathy. LUNGS: Clear breath sounds HEART: Irregular S1-S2. 2/6 LISA LSB. EXTREMITIES: The right ankle has wound vac in place. No erythema or edema. SKIN: No rash. NEUROLOGIC: Nonfocal. IMPRESSION: R. ankle wound infection. Enterobacter/Pseudomonas intermediately sensitive to Cefepime. Patient had removal of ankle hardware. Has hardware at r. tibia from prior surgery. RECOMMENDATIONS Continue IV Zosyn x 6 weeks. See orders. PIC ordered. Okay for discharge. Forms for infusion filled out. Discussed with case checker. Follow up with outpatient ID in [facility] in 1 week. Patient to notify his primary care physician. Neel Han MD Jan 02, 2017 10:48
[2017-01-02 12:00] VITALS: BP 121/69; PULSE 69; RESP 20; TEMP 97.3; O2SAT 96
[2017-01-02 12:03] LABS: AUTOMATED NEUTROPHIL # 8.6 TH/MM3 (1.8-7.7); BASOPHIL # 0.1 TH/MM3 (0-0.2); BASOPHIL % 0.8 % (0.0-2.0); EOSINOPHIL # 0.3 TH/MM3 (0-0.4); EOSINOPHIL % 2.7 % (0.0-4.0); HEMATOCRIT 42.6 % (39.0-51.0); HEMO FLAGS DIFF FINAL; LYMPHOCYTE # 2.2 TH/MM3 (1.0-4.8); MEAN CELL VOLUME 81.5 FL (80.0-100.0); MEAN CORPUSCULAR HEMOGLOBIN 25.7 PG (27.0-34.0); MEAN CORPUSCULAR HGB CONC 31.5 % (32.0-36.0); MONO % 7.1 % (0.0-8.0); NEUT % 71.4 % (16.0-70.0); PLATELET COUNT 342 TH/MM3 (150-450); RED BLOOD COUNT 5.23 MIL/MM3 (4.50-5.90); RED CELL DISTRIBUTION WIDTH 22.8 % (11.6-17.2); WHITE BLOOD COUNT 12.1 TH/MM3 (4.0-11.0)
--- NOTE | 2017-01-02 15:51 | RADRPT ---
EXAM DATE/TIME: 01/02/2017 15:13 [facility] COMPARISON: CHEST SINGLE AP, October 15, 2015, 11:43. INDICATIONS : Evaluate PICC line placement MEDICAL HISTORY : Hypertension. Cardiovascular disease, A-fib SURGICAL HISTORY : Cholecystectomy. Gastric bypass ENCOUNTER: Initial ACUITY: 3 days PAIN SCORE: 0/10 LOCATION: chest FINDINGS: A single view of the chest demonstrates the lungs to be symmetrically aerated without evidence of mas s, infiltrate or effusion. Hypoinflation with bibasilar atelectasis. The cardiomediastinal contours a re unremarkable. Osseous structures are intact. Tip of the right-sided PICC line in the SVC at the l evel of the azygous confluence. CONCLUSION: 1. PICC line in good position. 2. Hypoinflation with bibasilar atelectasis. Parker Benjamin Jr., MD on January 02, 2017 at 15:49 Board Certified Radiologist. This report was verified electronically.
[2017-01-02 16:00] VITALS: BP 126/74; PULSE 76; RESP 19; TEMP 96.9; O2SAT 95
== END 2017-01-02 19:36 | disposition home health service (06) | DRG 857 ==
LOC: HSDC 06:24 → EDSTATUS 09:15 → HSDI 10:49 → N07B 15:13 → OBSVTOIN 12-28 08:48
PROVIDERS: ADMIT Orthopaedic Surgery Orthopaedic Trauma; ATTEND Orthopaedic Surgery Orthopaedic Trauma
PROC: 0QBG0ZZ Excision of Right Tibia, Open Approach (ICD-10-PCS; principal; 2016-12-27 09:48)
PROC: 02HV33Z Insertion of Infusion Device into Superior Vena Cava, Percutaneous Approach (ICD-10-PCS; 2017-01-02)
PROC: B548ZZA Ultrasonography of Superior Vena Cava, Guidance (ICD-10-PCS; 2017-01-02)
DX: T81.4XXA Infection following a procedure, initial encounter (principal); T81.31XA Disruption of external operation (surgical) wound, not elsewhere classified, initial encounter; J44.9 Chronic obstructive pulmonary disease, unspecified; B96.5 Pseudomonas (aeruginosa) (mallei) (pseudomallei) as the cause of diseases classified elsewhere; I10 Essential (primary) hypertension; E78.00 Pure hypercholesterolemia, unspecified; K21.9 Gastro-esophageal reflux disease without esophagitis; N40.1 Benign prostatic hyperplasia with lower urinary tract symptoms; R33.8 Other retention of urine; E66.9 Obesity, unspecified; Z68.29 Body mass index [BMI] 29.0-29.9, adult; Z23 Encounter for immunization; Z87.891 Personal history of nicotine dependence; Z96.653 Presence of artificial knee joint, bilateral; Z98.84 Bariatric surgery status
CPT/HCPCS: 71010; 76937; 80048; 85025; 87015; 87070; 87077; 87102; 87116; 87176; 87186; 87205; 87206; 90471; 90686; 93922; 94150; 96365; 96367; G0008; G0378; G8987-GP; G8988-GP; J0690; J0692; J1100; J1580; J2250; J2270; J2370; J2543; J3010; J3370; J7050; J7120; J7613; Q2038

== ENCOUNTER 2017-01-16 15:55 | Emergency (ER) | payer MEDICARE, BC ==
[~2017-01-16 15:55] MED LIST changes: -WALKER/ADULT/FO1 MIS
[2017-01-16 15:59] VITALS: BP 146/88; PULSE 78; RESP 14; TEMP 97.9; O2SAT 98
[2017-01-16] MEDS ORDERED: FORT600S SQ (18:00)
--- NOTE | 2017-01-16 18:30 | PD ---
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 The patient has a PICC line for IV Zosyn that is administered continuously throughout the day through a pump for a right lower extremity wound infection. The patient was admitted for this infection earlier this month and was evaluated by orthopedist. States that his PICC line stopped working this morning. He denies pain. PFSH Past Medical History Hx Anticoagulant Therapy: Yes Arthritis: Yes Asthma: No Heart Rhythm Problems: Yes (A FIB) Cancer: No Cardiovascular Problems: Yes (HTN) High Cholesterol: Yes (CHOLESTROL) Chest Pain: No Congestive Heart Failure: No COPD: Yes (NEEDS C-PAP) Cerebrovascular Accident: No Diabetes: No Diminished Hearing: Yes (HEARING AIDES) Endocrine: No Gastrointestinal Disorders: Yes (gastric by pass) GERD: Yes Hepatitis: No Hiatal Hernia: No Hypertension: Yes Immune Disorder: No Kidney Stones: No Medical other: Yes (gout) Musculoskeletal: Yes (ortho surgery) Neurologic: Yes (TINGLING IN FEET ) Psychiatric: No Reproductive: No Respiratory: Yes (COPD) Migraines: No Renal Failure: No Seizures: No Sleep Apnea: Yes (C-PAP AT NIGHT) Thyroid Disease: No Ulcer: No Past Surgical History Abdominal Surgery: Yes (gastric bypass, APPENDECTOMY) AICD: No Body Medical Devices: 22 pin and r leg and ankle Cardiac Surgery: No Ear Surgery: Yes (CHILDHOOD- MASTOID SURGERY) Endocrine Surgery: No Eye Surgery: No Genitourinary Surgery: Yes (TURP) Joint Replacement: Yes (bilateral total hips) Oral Surgery: No Pacemaker: No Thoracic Surgery: No Other Surgery: Yes (GROWTH ON RIGHT WRIST REMOVED, EXCESS SKIN REMOVED) Social History Alcohol Use: No Tobacco Use: No Substance Use: No Allergies-Medications (Allergen,Severity, Reaction): Coded Allergies: No Known Allergies (Unverified Allergy, Unknown, 01/16/17) Reported Meds & Prescriptions Reported Meds & Active Scripts Active Hydrocodone-Acetaminophen 10-325 mg Tab 1 Tab PO Q4H PRN Reported Forteo Inj (Teriparatide (Recombinant) Inj) 600 Mcg/2.4 Ml Pen 20 Mcg SQ DAILY Ferrous Sulfate 325 Mg (65 Mg Iron) Tablet 325 Mg PO DAILY Calcium Oyster Shell (Calcium Carbonate) 1,250 Mg Tab 2,500 Mg PO DAILY 1,250 mg calcium carbonate (500 mg elemental calcium) Simvastatin 20 Mg Tab 20 Mg PO HS Vitamin D3 (Cholecalciferol) 5,000 Unit Cap 5,000 Units PO WEEKLY Tamsulosin (Tamsulosin HCl) 0.4 Mg Cap 0.8 Mg PO HS Symbicort Inh (Budesonide/Formoterol Fumarate) 160-4.5 Mcg/Act Aero 2 Puff INH Q12HR Spiriva Handihaler (Tiotropium Inh) 18 Mcg Cap 18 Mcg INH DAILY 1 capsule = 18 mcg Diltiazem (Diltiazem HCl) 90 Mg Tab 180 Mg PO DAILY Omeprazole 20 Mg Tab 20 Mg PO DAILY Digoxin 0.25 Mg Tab 0.25 Mg PO DAILY Metoprolol Tartrate 100 Mg Tab 100 Mg PO BID Allopurinol 300 Mg Tab 300 Mg PO DAILY Eliquis (Apixaban) 5 Mg Tab 5 Mg PO BID Review of Systems Except as stated in HPI: all other systems reviewed are Neg Physical Exam Narrative GENERAL: Well-developed, well-nourished, comfortable, no apparent distress. CARDIOVASCULAR: Regular rate and rhythm. Right upper extremity PICC line that is unable to be flushed, no surrounding warmth or erythema, no induration.. RESPIRATORY: No accessory muscle use. Clear to auscultation. Breath sounds equal bilaterally. MUSCULOSKELETAL: Right upper extremity PICC line. All compartments in the right upper extremity are supple. No obvious deformities. No clubbing. No cyanosis. No edema. NEUROLOGICAL: Awake and alert. No obvious cranial nerve deficits. Motor grossly within normal limits. Normal speech. PSYCHIATRIC: Appropriate mood and affect; insight and judgment normal. Data Data Last Documented VS Vital Signs Date Time Temp Pulse Resp B/P (MAP) Pulse Ox O2 Delivery O2 Flow Rate FiO2 01/16/17 19:29 56 18 154/86 (108) 96 Room Air 01/16/17 15:59 97.9 Orders Orders Cathflo Activase Inj (Cathflo Activase I (01/16/17 18:45) Ed Discharge Order (01/16/17 20:01) MDM Medical Decision Making Medical Screen Exam Complete: Yes Emergency Medical Condition: Yes Differential Diagnosis PICC line malfunction Narrative Course 6:40 PM: PICC team RN evaluated the patient. States he can flush the line, however it is sluggish. Recommends infusing a dose of cathflow activase. CathFlow Activase was infused, PICC line flushed normally, and patient was restarted on his Zosyn infusion. He is stable for discharge home with outpatient follow-up. He has an appointment with orthopedist Dr. Parsons on in 3 days. He was informed on when to return to the emergency department. He verbalizes understanding and agreement with plan. Diagnosis Primary Impression: Occluded PICC line Qualified Codes: T82.898A - Other specified complication of vascular prosthetic devices, implants and grafts, initial encounter Referrals: Primary Care Physician 3 days Additional Instructions: Follow-up with your primary care physician or infectious disease specialist this week. Return to the emergency department for worsening symptoms or any other concerns. Disposition: 01 DISCHARGE HOME Condition: Stable Adi Ly MD Jan 16, 2017 18:30
[2017-01-16] MEDS ORDERED: ALTEPLASE RECOMBINANT 2 MG VIAL INTRACATH ONE (18:45)
[2017-01-16 19:29] VITALS: BP 154/86; PULSE 56; RESP 18; O2SAT 96
== END 2017-01-16 20:30 | disposition home or self-care (01) ==
LOC: NEPD 15:55
DX: T82.898A Other specified complication of vascular prosthetic devices, implants and grafts, initial encounter (principal); I48.91 Unspecified atrial fibrillation; I10 Essential (primary) hypertension; J44.9 Chronic obstructive pulmonary disease, unspecified; K21.9 Gastro-esophageal reflux disease without esophagitis; M10.9 Gout, unspecified; M19.90 Unspecified osteoarthritis, unspecified site; E78.00 Pure hypercholesterolemia, unspecified; Z79.899 Other long term (current) drug therapy
CPT/HCPCS: 99284; J2997

== ENCOUNTER 2017-01-22 08:41 | Emergency (ER) | payer MEDICARE, BC ==
[~2017-01-22] VITALS: Ht 190.5 cm; Wt 105.0 kg
[~2017-01-22 08:41] MED LIST changes: +FORT600S SQ; -ORPH100T PO
[2017-01-22 08:42] VITALS: BP 169/78; PULSE 52; RESP 16; TEMP 97.6; O2SAT 95
[2017-01-22] MEDS ORDERED: ALTEPLASE RECOMBINANT 2 MG VIAL INTRACATH ONE ×2 (09:15→11:00)
[2017-01-22 09:18] VITALS: BP 177/81; PULSE 51; RESP 18; O2SAT 98
--- NOTE | 2017-01-22 10:18 | PD ---
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 He was here 6 days ago and had his PICC line flushed with cathflo because it wasn't working. He says it had been working fine since then until this morning. He says he can't flush it at all but he can draw back some. PFSH Past Medical History Hx Anticoagulant Therapy: Yes Arthritis: Yes Asthma: No Heart Rhythm Problems: Yes (A FIB) Cancer: No Cardiovascular Problems: Yes High Cholesterol: Yes (CHOLESTROL) Chest Pain: No Congestive Heart Failure: No COPD: Yes (NEEDS C-PAP) Cerebrovascular Accident: No Diabetes: Yes Patient Takes Glucophage: Yes Diminished Hearing: Yes (HEARING AIDES) Endocrine: No Gastrointestinal Disorders: Yes (gastric by pass) GERD: Yes Hepatitis: No Hiatal Hernia: No Hypertension: Yes Immune Disorder: No Kidney Stones: No Medical other: Yes (gout) Musculoskeletal: Yes (ortho surgery) Neurologic: Yes (TINGLING IN FEET ) Psychiatric: No Reproductive: No Respiratory: Yes Migraines: No Renal Failure: No Seizures: No Sleep Apnea: Yes (C-PAP AT NIGHT) Thyroid Disease: No Ulcer: No Tetanus Vaccination: > 5 Years Influenza Vaccination: Yes Past Surgical History Abdominal Surgery: Yes (gastric bypass, APPENDECTOMY) AICD: No Appendectomy: Yes Body Medical Devices: 22 pin and r leg and ankle Cardiac Surgery: No Ear Surgery: Yes (CHILDHOOD- MASTOID SURGERY) Endocrine Surgery: No Eye Surgery: No Genitourinary Surgery: Yes (TURP) Joint Replacement: Yes (bilateral total hips) Oral Surgery: No Pacemaker: No Thoracic Surgery: No Tonsillectomy: Yes Other Surgery: Yes (GROWTH ON RIGHT WRIST REMOVED, EXCESS SKIN REMOVED) Social History Alcohol Use: No Tobacco Use: No Substance Use: No Allergies-Medications (Allergen,Severity, Reaction): Coded Allergies: No Known Allergies (Unverified Allergy, Unknown, 01/22/17) Reported Meds & Prescriptions Reported Meds & Active Scripts Active Reported Forteo Inj (Teriparatide (Recombinant) Inj) 600 Mcg/2.4 Ml Pen 20 Mcg SQ DAILY Ferrous Sulfate 325 Mg (65 Mg Iron) Tablet 325 Mg PO DAILY Calcium Oyster Shell (Calcium Carbonate) 1,250 Mg Tab 2,500 Mg PO DAILY 1,250 mg calcium carbonate (500 mg elemental calcium) Simvastatin 20 Mg Tab 20 Mg PO HS Vitamin D3 (Cholecalciferol) 5,000 Unit Cap 5,000 Units PO WEEKLY Tamsulosin (Tamsulosin HCl) 0.4 Mg Cap 0.8 Mg PO HS Symbicort Inh (Budesonide/Formoterol Fumarate) 160-4.5 Mcg/Act Aero 2 Puff INH Q12HR Spiriva Handihaler (Tiotropium Inh) 18 Mcg Cap 18 Mcg INH DAILY 1 capsule = 18 mcg Diltiazem (Diltiazem HCl) 90 Mg Tab 180 Mg PO DAILY Omeprazole 20 Mg Tab 20 Mg PO DAILY Digoxin 0.25 Mg Tab 0.25 Mg PO DAILY Metoprolol Tartrate 100 Mg Tab 100 Mg PO BID Allopurinol 300 Mg Tab 300 Mg PO DAILY Eliquis (Apixaban) 5 Mg Tab 5 Mg PO BID Review of Systems General / Constitutional: No: Fever, Chills Cardiovascular: No: Chest Pain or Discomfort Physical Exam Narrative GENERAL: Well-appearing, no acute distress, nontoxic SKIN: PICC line in the right upper extremity with no surrounding warmth or erythema, tract is somewhat coiled HEAD: Atraumatic. Normocephalic. ENT: No nasal bleeding or discharge. Moist mucous membranes MUSCULOSKELETAL: No obvious deformities. . NEUROLOGICAL: Awake and alert. No obvious cranial nerve deficits. Motor grossly within normal limits. Normal speech. PSYCHIATRIC: Appropriate mood and affect; insight and judgment normal. Data Data Last Documented VS Vital Signs Date Time Temp Pulse Resp B/P (MAP) Pulse Ox O2 Delivery O2 Flow Rate FiO2 01/22/17 09:18 51 18 177/81 (113) 98 Room Air 01/22/17 08:42 97.6 Orders Orders Cathflo Activase Inj (Cathflo Activase I (01/22/17 09:15) Chest, Single Ap (01/22/17 ) Cathflo Activase Inj (Cathflo Activase I (01/22/17 11:00) Vascular Access Team Consult/P PRN (01/22/17 10:48) Vascular Poc Ultrasound (01/22/17 ) MDM Medical Decision Making Medical Screen Exam Complete: Yes Emergency Medical Condition: Yes Interpretation(s) Afebrile, bradycardia, hypertensive Last 24 hours Impressions Chest X-Ray 01/22/17 0000 Signed Impressions: Service Date/Time: Sunday, January 22, 2017 10:05 - CONCLUSION: Bibasilar densities likely atelectasis greater left lower lobe. Right-sided PICC line with tip in the subclavian vein. Kd Zuniga MD Differential Diagnosis Clogged PICC line, PICC line displacement Narrative Course This is a 71-year-old male who presents to the emergency department with malfunction of his PICC line. Chest x-ray demonstrates some dislodgment of the PICC line with prior physician being admitted to the [facility], and is now in the subclavian. I spoke to vascular access. We made multiple attempts at unclogging the PICC line. Vascular access nurse came down and was able to declot the PICC line without difficulty. She identified that the patient is not heparinizing the line which is likely contributing to this recurrent clots. Patient was educated on heparinizing the line after each antibiotic dose. At this time I think the line is still in a safe position for use. He'll be discharged home. Diagnosis Primary Impression: Occluded PICC line Qualified Codes: T82.898A - Other specified complication of vascular prosthetic devices, implants and grafts, initial encounter Patient Instructions: General Instructions Med/Other Pt SpecificInfo: No Change to Meds Disposition: 01 DISCHARGE HOME Condition: Stable Marcela Pelaez MD Jan 22, 2017 10:18
--- NOTE | 2017-01-22 10:24 | RADRPT ---
EXAM DATE/TIME: 01/22/2017 10:05 [facility] COMPARISON: CHEST SINGLE AP, January 02, 2017, 15:13. INDICATIONS : Evaluate PICC line MEDICAL HISTORY : Cardiovascular disease. SURGICAL HISTORY : Cholecystectomy. ENCOUNTER: Initial ACUITY: 1 month PAIN SCORE: 0/10 LOCATION: Right chest FINDINGS: A single view of the chest demonstrates minimal basilar densities greater the left. Slight elevation left hemidiaphragm. The cardiomediastinal contours are unremarkable. Osseous structures are intact. CONCLUSION: Bibasilar densities likely atelectasis greater left lower lobe. Right-sided PICC line with tip in the subclavian vein. Kd Zuniga MD on January 22, 2017 at 10:21 Board Certified Radiologist. This report was verified electronically.
== END 2017-01-22 12:15 | disposition home or self-care (01) ==
LOC: NEPC 08:41
DX: T82.898A Other specified complication of vascular prosthetic devices, implants and grafts, initial encounter (principal); J44.9 Chronic obstructive pulmonary disease, unspecified; E11.9 Type 2 diabetes mellitus without complications; I10 Essential (primary) hypertension; K21.9 Gastro-esophageal reflux disease without esophagitis; M10.9 Gout, unspecified; I48.91 Unspecified atrial fibrillation; E78.00 Pure hypercholesterolemia, unspecified; M19.90 Unspecified osteoarthritis, unspecified site
CPT/HCPCS: 71010; 99283; J2997

== ENCOUNTER 2017-02-16 10:40 | Emergency (ER) | payer MEDICARE, BC ==
[~2017-02-16] VITALS: Ht 190.5 cm; Wt 105.0 kg
[~2017-02-16 10:40] MED LIST changes: -HYDR-3583 PO
[2017-02-16 10:42] VITALS: BP 166/93; PULSE 72; RESP 12; TEMP 97.6; O2SAT 95
--- NOTE | 2017-02-16 11:45 | PD ---
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 He is on IV Zosyn for an ankle infection. His PICC line and wound VAC to his ankle are scheduled to come off on February 23. He denies paresthesias, loss of sensation, decreased range of motion, decreased strength to the affected extremity. Denies fever, vomiting. Denies pain. Tried flushing the PICC line with heparin without relief. Has had this happen before. No known relieving or aggravating factors. Was not able to administer his IV Zosyn last night. Dr. AVELAR is his infectious disease. Dr. Parsons is his orthopedic surgeon. He has history of hypertension, COPD, atrial fibrillation and is on TeleQuest. No known allergies. Primary care provider is Dr. Giacomo Pagan. Has no other medical complaints. No modifying factors or associated signs and symptoms. PFSH Past Medical History Hx Anticoagulant Therapy: Yes (eliquis) Arthritis: Yes Asthma: No Atrial Fibrillation: Yes Heart Rhythm Problems: Yes (A FIB) Cancer: No Cardiovascular Problems: Yes (afib) High Cholesterol: Yes Chest Pain: No Congestive Heart Failure: No COPD: Yes Cerebrovascular Accident: No Diabetes: Yes Patient Takes Glucophage: No Diminished Hearing: Yes (HEARING AIDES) Endocrine: No Gastrointestinal Disorders: Yes (gastric by pass) GERD: Yes Gout: Yes Genitourinary: Yes (PROSTATE) Hepatitis: No Hiatal Hernia: No Hypertension: Yes Immune Disorder: No Kidney Stones: No Musculoskeletal: Yes (ortho surgery) Neurologic: Yes (NEUROPATHY) Psychiatric: No Reproductive: No Respiratory: Yes (copd) Migraines: No Renal Failure: No Seizures: No Sleep Apnea: Yes (C-PAP AT NIGHT) Thyroid Disease: No Ulcer: No Tetanus Vaccination: Unknown Influenza Vaccination: Yes Past Surgical History Abdominal Surgery: Yes (gastric bypass) AICD: No Appendectomy: Yes Body Medical Devices: 22 pin and r leg and ankle Cardiac Surgery: No Ear Surgery: Yes (CHILDHOOD- MASTOID SURGERY) Endocrine Surgery: No Eye Surgery: No Genitourinary Surgery: Yes (TURP) Joint Replacement: Yes (bilateral total hips) Oral Surgery: No Pacemaker: No Thoracic Surgery: No Tonsillectomy: Yes Other Surgery: Yes (GROWTH ON RIGHT WRIST REMOVED, EXCESS SKIN REMOVED) Social History Alcohol Use: No Tobacco Use: No Substance Use: No Allergies-Medications (Allergen,Severity, Reaction): Coded Allergies: No Known Allergies (Unverified Allergy, Unknown, 02/16/17) Reported Meds & Prescriptions Reported Meds & Active Scripts Active Reported Forteo Inj (Teriparatide (Recombinant) Inj) 600 Mcg/2.4 Ml Pen 20 Mcg SQ DAILY Ferrous Sulfate 325 Mg (65 Mg Iron) Tablet 325 Mg PO DAILY Calcium Oyster Shell (Calcium Carbonate) 1,250 Mg Tab 2,500 Mg PO DAILY 1,250 mg calcium carbonate (500 mg elemental calcium) Simvastatin 20 Mg Tab 20 Mg PO HS Vitamin D3 (Cholecalciferol) 5,000 Unit Cap 5,000 Units PO WEEKLY Tamsulosin (Tamsulosin HCl) 0.4 Mg Cap 0.8 Mg PO HS Symbicort Inh (Budesonide/Formoterol Fumarate) 160-4.5 Mcg/Act Aero 2 Puff INH Q12HR Spiriva Handihaler (Tiotropium Inh) 18 Mcg Cap 18 Mcg INH DAILY 1 capsule = 18 mcg Diltiazem (Diltiazem HCl) 90 Mg Tab 180 Mg PO DAILY Omeprazole 20 Mg Tab 20 Mg PO DAILY Digoxin 0.25 Mg Tab 0.25 Mg PO DAILY Metoprolol Tartrate 100 Mg Tab 100 Mg PO BID Allopurinol 300 Mg Tab 300 Mg PO DAILY Eliquis (Apixaban) 5 Mg Tab 5 Mg PO BID Review of Systems Except as stated in HPI: all other systems reviewed are Neg Physical Exam Narrative GENERAL: Well-nourished, well-developed male patient, in no acute distress SKIN: Warm and dry. Right upper extremity with PICC line; site is without erythema, edema, drainage. HEAD: Atraumatic. Normocephalic. EYES: Pupils equal and round. No scleral icterus. No injection or drainage. ENT: Mucosa pink and moist. Airway patent. NECK: Trachea midline. CARDIOVASCULAR: Regular rate. RESPIRATORY: No accessory muscle use. GASTROINTESTINAL: Obese. MUSCULOSKELETAL: No obvious deformities. No clubbing. No cyanosis. No edema. NEUROLOGICAL: Awake and alert. Oriented 3. No obvious cranial nerve deficits. Motor grossly within normal limits. Normal speech. PSYCHIATRIC: Appropriate mood and affect; insight and judgment normal. Data Data Last Documented VS Vital Signs Date Time Temp Pulse Resp B/P (MAP) Pulse Ox O2 Delivery O2 Flow Rate FiO2 02/16/17 13:49 02/16/17 13:00 74 15 96 Room Air 02/16/17 10:42 97.6 Orders Orders Heparin Central Flush (Heparin Central F (02/16/17 12:30) Cathflo Activase Inj (Cathflo Activase I (02/16/17 13:00) Ed Discharge Order (02/16/17 13:26) MDM Medical Decision Making Medical Screen Exam Complete: Yes Emergency Medical Condition: Yes Medical Record Reviewed: Yes Differential Diagnosis Medical clearance, clogged PICC line, and ankle device malfunction Narrative Course 71-year-old male presents to emergency department included right upper extremity PICC line. Heparin flush ordered and was unsuccessful at clearing the occlusion. Atelase ordered. 1324: PICC line successfully flushing after atelase flush and drawing back blood. Instructed patient to follow up with primary care provider. Patient verbalizes understanding and agreement with treatment plan. Patient is medically cleared and stable for discharge. Discussed reasons to return to the emergency department. Patient agrees with treatment plan. The patients vital signs are stable and the patient is stable for outpatient follow-up and treatment. Patient discharged home, stable and in no acute distress. Diagnosis Primary Impression: Occlusion of peripherally inserted central catheter (PICC) line Qualified Codes: T82.898A - Other specified complication of vascular prosthetic devices, implants and grafts, initial encounter Referrals: Infectious Disease Specialist Orthopaedic Surgeon Primary Care Physician Patient Instructions: General Instructions Additional Instructions: Continue medications as prescribed Follow-up with infectious disease Follow-up with orthopedic surgeon Follow-up with primary care provider Return to the emergency department immediately with worsening of symptoms Med/Other Pt SpecificInfo: No Change to Meds, No Meds Exist/No RX given Disposition: DISCHARGE HOME Condition: Stable Emily Borja Feb 16, 2017 11:45
[2017-02-16 13:00] VITALS: BP 161/59; PULSE 74; RESP 15; O2SAT 96
[2017-02-16] MEDS ORDERED: ALTEPLASE RECOMBINANT 2 MG VIAL IV FLUSH SCH (13:00)
== END 2017-02-16 13:51 | disposition home or self-care (01) ==
LOC: NEPD 10:40
DX: T82.898A Other specified complication of vascular prosthetic devices, implants and grafts, initial encounter (principal); E78.00 Pure hypercholesterolemia, unspecified; K21.9 Gastro-esophageal reflux disease without esophagitis; I10 Essential (primary) hypertension; I48.91 Unspecified atrial fibrillation; J44.9 Chronic obstructive pulmonary disease, unspecified; Z79.01 Long term (current) use of anticoagulants
CPT/HCPCS: 99282; J1642; J2997